=== PATIENT | male | born 1965 | race Caucasian/White ===

== ENCOUNTER 2017-03-06 11:15 | Inpatient (IN) | payer OTHER ==
[2017-03-06 12:44] VITALS: BMI 27.8
--- NOTE | 2017-03-06 13:21 | HP ---
COWS - Scale Resting Pulse: 0= [place] 80 or Below Sweatin=Flushed/Facial Moisture Restless Observation: 1= Difficult to Sit Still Pupil Size: 0= Normal to Room Light Bone or Joint Aches: 2= Severe Diffuse Aches Runny Nose/ Eye Tearin= Runny Nose/Eyes GI Upset > 30mins: 1= Stomach Cramp Tremor Observation: 2= Slight Tremor Visible Yawning Observation: 1= 1-2x During Session Anxiety or Irritability: 2=Irritable/Anxious Goose Flesh Skin: 3=Piloerection COWS Score: 16 CIWA Score - CIWA Score Nausea/Vomitin-No Nausea/No Vomiting Muscle Tremors: 4-Moderate,w/Arms Extend Anxiety: 3 Agitation: 4-Moderately Restless Paroxysmal Sweats: 3 Orientation: 0-Oriented Tacttile Disturbances: 0-None Auditory Disturbances: 0-None Visual Disturbances: 0-None Headache: 1-Very Mild CIWA-Ar Total Score: 15 Admission ROS BHS - HPI Chief Complaint: I am here to detox. Allergies/Adverse Reactions: Allergies Allergy/AdvReac Type Severity Reaction Status Date / Time No Known Allergies Allergy Verified 03/06/17 12:57 History of Present Illness: pt is a 51yr old male with a history of alcohol and heroin dependence seeking detox for treatment. Exam Limitations: No Limitations - Ebola screening Have you traveled outside of the country in the last 21 days: No Have you had contact with anyone from an Ebola affected area: No Have you been sick,other than usual withdrawal symptoms: No Do you have a fever: No - Review of Systems Constitutional: Night Sweats, Changes in sleep EENT: reports: Tearing Respiratory: reports: Cough (smokers) Cardiac: reports: No Symptoms Reported GI: reports: No Symptoms Reported : reports: No Symptoms Reported Musculoskeletal: reports: Joint Pain (neuropathy) Integumentary: reports: Flushing Neuro: reports: Tingling, Tremors Endocrine: reports: Excessive Sweating, Flushing, Intolerance to Cold, Intolerance to Heat Hematology: reports: No Symptoms Reported Psychiatric: reports: No Sypmtoms Reported, Judgement Intact, Mood/Affect Appropiate, Orientated x3, Agitated, Anxious Other Systems: Reviewed and Negative Patient History - Patient Medical History Hx Anemia: No Hx Asthma: No Hx Chronic Obstructive Pulmonary Disease (COPD): No Hx Cancer: No Hx Cardiac Disorders: No Hx Congestive Heart Failure: No Hx Hypertension: No Hx Hypercholesterolemia: No Hx Pacemaker: No HX Cerebrovascular Accident: No Hx Seizures: No Hx Dementia: No Hx Diabetes: No Hx Gastrointestinal Disorders: No Hx Liver Disease: No Hx Genitourinary Disorders: No Hx Sexually Transmitted Disorders: No Hx Renal Disease (ESRD): No Hx Thyroid Disease: No Hx Human Immunodeficiency Virus (HIV): No (negative) Hx Hepatitis C: No (negative) Hx Depression: Yes Hx Suicide Attempt: No Hx Bipolar Disorder: No Hx Schizophrenia: No Other Medical History: insomina - Patient Surgical History Past Surgical History: Yes Hx Neurologic Surgery: No Hx Cataract Extraction: No Hx Cardiac Surgery: No Hx Lung Surgery: No Hx Breast Surgery: No Hx Breast Biopsy: No Hx Abdominal Surgery: No Hx Appendectomy: No Hx Cholecystectomy: No Hx Genitourinary Surgery: No Hx Section: No Hx Orthopedic Surgery: Yes (right knee replacement 2000; left ACL repair 2009) - PPD History Previous Implant?: Yes Documented Results: Negative w/proof Implanted On Prior [facility] Admission?: Yes Date: 07/23/16 Results: 0 mm PPD to be Administered?: No - Reproductive History Patient is a Female of Child Bearing Age (11 -55 yrs old): No - Smoking Cessation Smoking history: Current every day smoker Have you smoked in the past 12 months: Yes Aproximately how many cigarettes per day: 20 Hx Chewing Tobacco Use: No Initiated information on smoking cessation: Yes 'Breaking Loose' booklet given: 03/06/17 - Substance & Tx. History Hx Alcohol Use: Yes Hx Substance Use: Yes Substance Use Type: Alcohol, Heroin Hx Substance Use Treatment: Yes (last detox [facility] 11/2016) - Substances Abused Heroin Route: Inhalation Frequency: Daily Amount used: 15 bags Age of first use: 15 Date of Last Use: 03/05/17 Alcohol-beer Route: Oral Frequency: Daily Amount used: 7 (24 oz.) Age of first use: 15 Date of Last Use: 03/05/17 Family Disease History - Family Disease History Family Disease History: Heart Disease: Mother (htn, liver cancer, alive), CA: Father (pancreatic cancer, alive, heroin use), Mother, Other: Brother (etoh, cocaine) Admission Physical Exam BHS - Vital Signs Vital Signs: Vital Signs - 24 hr 03/06/17 12:41 Temperature 96.4 F L Pulse Rate 79 Respiratory 20 Rate Blood Pressure 141/81 - Physical General Appearance: Yes: Appropriately Dressed, Moderate Distress, Tremorous, Irritable, Sweating, Anxious HEENTM: Yes: Hearing grossly Normal, Normal Voice, Rhinorrhea Respiratory: Yes: Lungs Clear, Normal Breath Sounds, No Respiratory Distress Neck: Yes: No masses,lesions,Nodules Breast: Yes: Within Normal Limits Cardiology: Yes: Regular Rhythm, Regular Rate, S1, S2 Abdominal: Yes: Normal Bowel Sounds, Non Tender, Soft Genitourinary: Yes: Within Normal Limits Back: Yes: Normal Inspection Musculoskeletal: Yes: full range of Motion Extremities: Yes: Normal Capillary Refill, Normal Inspection, Non-Tender, Tremors Neurological: Yes: Fully Oriented, Alert, Normal Response Integumentary: Yes: Normal Color, Diaphoresis Lymphatic: Yes: Within Normal Limits - Diagnostic (1) Alcohol dependence with uncomplicated withdrawal Current Visit: Yes Status: Chronic (2) Low back pain Current Visit: Yes Status: Chronic Qualifiers: Chronicity: chronic Back pain laterality: bilateral Sciatica presence: with sciatica Sciatica laterality: bilateral sciatica Qualified Code(s): M54.42 - Lumbago with sciatica, left side (3) Neuropathy Current Visit: Yes Status: Chronic (4) Nicotine dependence Current Visit: Yes Status: Chronic Qualifiers: Nicotine product type: cigarettes Substance use status: uncomplicated Qualified Code(s): F17.210 - Nicotine dependence, cigarettes, uncomplicated (5) Uncomplicated opioid dependence Current Visit: Yes Status: Chronic Cleared for Admission [facility] - Detox or Rehab [facility] Level of Care: Medically Managed Detox Regimen/Protocol: Methadone/Librium [facility] Breath Alcohol Content Breath Alcohol Content: 0 Urine Drug Screen - Results Drug Screen Negative: No Urine Drug Screen Results: OPI-Opiates, BZO-Benzodiazepines
[2017-03-06] MEDS ORDERED: MENTHOL/PHENOL 1 EACH UD MM PRN (13:27)
[2017-03-06] MEDS ORDERED: MAGNESIUM HYDROX 2400MG/30ML ORAL SUSPENSION 30 ML CUP PO PRN (13:27)
[2017-03-06] MEDS ORDERED: chlordiazePOXIDE HCL 25 MG CAPSULE PO PRN (13:27)
[2017-03-06] MEDS ORDERED: ACETAMINOPHEN 325 MG TABLET (FP) PO PRN (13:27)
[2017-03-06] MEDS ORDERED: NICOTINE POLACRILEX 4 MG GUM BUC PRN (13:27)
[2017-03-06] MEDS ORDERED: MAG HYDROX/AL HYDROX/SIMETH 30 ML UNIT-DOSE CUP PO PRN (13:27)
[2017-03-06] MEDS ORDERED: IBUPROFEN 400 MG TABLET (FP) PO PRN (13:27)
[2017-03-06] MEDS ORDERED: P-EPHED 60MG/TRIPROLIDI 2.5MG TABLET PO PRN (13:27)
[2017-03-06] MEDS ORDERED: guaiFENesin/D-METHORPHAN HB 10 ML UNIT-DOSE CUPS PO PRN (13:27)
[2017-03-06] MEDS ORDERED: diphenhydrAMINE HCL 50 MG CAPSULE PO PRN (13:27)
[2017-03-06] MEDS ORDERED: MAGNESIUM CITRATE 300 ML BOTTLE PO PRN (13:27)
[2017-03-06] MEDS ORDERED: hydrOXYzine PAMOATE 50 MG CAPSULE (FP) PO PRN (13:27)
[2017-03-06] MEDS ORDERED: LOPERAMIDE HCL 2 MG CAPSULE PO PRN (13:27)
[2017-03-06] MEDS ORDERED: chlordiazePOXIDE HCL 25 MG CAPSULE PO ONE (14:37)
[2017-03-06] MEDS ORDERED: METHADONE HCL 10 MG TABLET (FOR DETOX USE ONLY) PO ONE ×2 (14:38→23:00)
[2017-03-06] MEDS: GABAPENTIN 400 MG CAPSULE (FP) PO SCH ×2 (15:04→22:25)
[2017-03-06 16:59] LABS: MCH 31.3 pg (25.7-33.7); MCHC 33.9 g/dl (32.0-35.9); MEAN CELL VOLUME 92.3 fl (80-96); MEAN PLT VOLUME 10.1 fl (7.5-11.1); PLATELET COUNT 91 K/MM3 (134-434); RDW 15.3 % (11.9-15.9); WHITE BLOOD COUNT 2.8 K/mm3 (4.0-10.0)
[2017-03-06 17:05] LABS: URINE APPEARANCE CLEAR; URINE BILIRUBIN NEGATIVE (NEGATIVE); URINE BLOOD NEGATIVE (NEGATIVE); URINE COLOR DKYELLOW; URINE GLUCOSE (UA) NEGATIVE (NEGATIVE); URINE KETONE NEGATIVE (NEGATIVE); URINE LEUK ESTERASE NEGATIVE (NEGATIVE); URINE NITRITE NEGATIVE (NEGATIVE); URINE PROTEIN NEGATIVE (NEGATIVE); URINE UROBILINOGEN 4.0 E.U/dl mg/dL (0.2-1.0)
[2017-03-06 17:12] LABS: ANION GAP 4 (8-16); CO2 29 mmol/L (21-32); GLUCOSE,RANDOM 101 mg/dL (74-106)
[2017-03-06 17:18] LABS: ALK PHOS 123 U/L (45-117); CREATININE 0.7 mg/dL (0.7-1.3); SGOT/AST 98 U/L (15-37); SGPT/ALT 60 U/L (12-78); TOT PROT 7.2 g/dl (6.4-8.2)
[2017-03-06] MEDS: chlordiazePOXIDE HCL 25 MG CAPSULE PO SCH ×2 (17:18→22:24)
--- NOTE | 2017-03-06 17:37 | CONSULT ---
[facility] Psychiatric Consult - Data Date of interview: 03/06/17 Admission source: [facility] Identifying data: One of the multiple admissions to [facility] for this 51 y/o male seeking detox treatment for heroin,benzodiazepine (xanax) and alcohol dependence.Patient is ,a father of one,domiciled,unemployed and supported on food stamps. Substance Abuse History: Discussed with the patient.Mr Moser confirms this report. Smoking Cessation. Smoking history: Current every day smoker. Have you smoked in the past 12 months: Yes. Aproximately how many cigarettes per day : 20. Hx Chewing Tobacco Use: No. Initiated information on smoking cessation: Yes. 'Breaking Loose' booklet given: 03/06/17. - Substance & Tx. History. Hx Alcohol Use: Yes. Hx Substance Use: Yes. Substance Use Type: Alcohol, Heroin. Hx Substance Use Treatment: Yes (last detox [facility] 11/2016). - Substances Abused. Heroin. Route: Inhalation. Frequency: Daily. Amount used: 15 bags. Age of first use: 15. Date of Last Use: 03/05/17. Alcohol-beer. Route: Oral. Frequency: Daily. Amount used: 7 (24 oz.). Age of first use: 15. Date of Last Use: 03/05/17 Medical History: History of right knee replacement,left ACL repair,carpal tunnel syndrome (left wrist) and neuropathy. Psychiatric History: In this interview the patient denies history of psychiatric hospitalizations.This is in contrast with his own report given to this typewriter operator automatic in June 2016.Imported report : " onset of mental illness at age 16.Diagnosed with Bipolar Disorder.Mr Moser states that he has never been compliant with medications " for no more than 20-30 days at a time." He informs that he has been off medications (no recall of any name) for more than seven months.Patient admits to a history of multiple psychiatric hospitalizations.Lost to OPD care for months.No reported history of suicide attempts.Chronic insomnia is endorsed and request made for zolpidem (for the duration of this hospital course) ".Mr Moser,in this new encounter,denies OPD care.Denies taking/being prescribed psychotropic medications.He expresses interest only for " something to sleep." No history of suicide attempts. Physical/Sexual Abuse/Trauma History: Patient denies. Additional Comment: Urine Drug Screen Results: OPI-Opiates, BZO- Benzodiazepines.Noted. Mental Status Exam - Mental Status Exam Alert and Oriented to: Time, Place, Person Cognitive Function: Good Patient Appearance: Well Groomed Mood: Hopeful, Euthymic Affect: Appropriate, Normal Range Patient Behavior: Appropriate, Cooperative Speech Pattern: Clear Voice Loudness: Normal Thought Process: Goal Oriented Thought Disorder: Not Present Hallucinations: Denies Suicidal Ideation: Denies Homicidal Ideation: Denies Insight/Judgement: Poor Sleep: Poorly, Difficulty falling asleep Appetite: Good Muscle strength/Tone: Normal Gait/Station: Normal Psychiatric Findings - Problem List ([place] 1, 2,3) (1) Alcohol dependence with uncomplicated withdrawal Current Visit: Yes Status: Acute (2) Uncomplicated opioid dependence Current Visit: Yes Status: Acute (3) Nicotine dependence Current Visit: Yes Status: Acute Qualifiers: Nicotine product type: cigarettes Substance use status: uncomplicated Qualified Code(s): F17.210 - Nicotine dependence, cigarettes, uncomplicated (4) Substance induced mood disorder Current Visit: Yes Status: Acute (5) Carpal tunnel syndrome, left Current Visit: Yes Status: Chronic (6) Insomnia Current Visit: Yes Status: Acute - Initial Treatment Plan Initial Treatment Plan: Psychoeducation.Detoxification.Ambien 10 mg po hs prn.Patient is made aware of potential for parasomnias.He is in agreement with this careplan.Observation.
--- NOTE | 2017-03-06 17:39 | CONSULT ---
[facility] Psychiatric Consult - Data Date of interview: 03/06/17 Psychiatric History: Patient reports onset of mental illness at age 16.Diagnosed with Bipolar Disorder.Mr Shanti states that he has never been compliant with medications " for no more than 20-30 days at a time." He informs that he has been off medications (no recall of any name) for more than seven months.Patient admits to a history of multiple psychiatric hospitalizations.Lost to OPD care for months.No reported history of suicide attempts.Chronic insomnia is endorsed and request made for zolpidem (for the duration of this hospital course).
[2017-03-06] MEDS: THIAMINE HCL 100 MG TABLET (FP) PO SCH (22:25)
[2017-03-06] MEDS: ZOLPIDEM TARTRATE 10 MG TABLET (PARK CARE ONLY) PO PRN (22:25)
[2017-03-07] MEDS: GABAPENTIN 400 MG CAPSULE (FP) PO SCH ×3 (06:00→23:00)
[2017-03-07] MEDS: chlordiazePOXIDE HCL 25 MG CAPSULE PO SCH ×4 (06:00→23:00)
[2017-03-07] MEDS ORDERED: METHADONE HCL 10 MG TABLET (FOR DETOX USE ONLY) PO SCH (10:00)
[2017-03-07] MEDS ORDERED: PRENATAL VITAMINS W/ FOLIC ACID TABLET (FP) PO SCH (10:00)
[2017-03-07] MEDS ORDERED: NICOTINE 21 MG/24 HOURS TOPICAL PATCH TD SCH (10:00)
--- NOTE | 2017-03-07 10:48 | PN ---
[facility] CIWA - CIWA Score Nausea/Vomitin-Mild Nausea/No Vomiting Muscle Tremors: 3 Anxiety: 3 Agitation: 3 Paroxysmal Sweats: 3 Orientation: 1-Uncertain about Date Tacttile Disturbances: 1-Very Mild Itch/Numbness Auditory Disturbances: 0-None Visual Disturbances: 0-None Headache: 0-None Present CIWA-Ar Total Score: 15 BHS COWS - Scale Resting Pulse: 0= [place] 80 or Below Sweatin=Flushed/Facial Moisture Restless Observation: 1= Difficult to Sit Still Pupil Size: 0= Normal to Room Light Bone or Joint Aches: 2= Severe Diffuse Aches Runny Nose/ Eye Tearin= Nasal Congestion GI Upset > 30mins: 1= Stomach Cramp Tremor Observation of Outstretched Hands: 2= Slight Tremor Visible Yawning Observation: 1= 1-2x During Session Anxiety or Irritability: 2=Irritable/Anxious Goose Flesh Skin: 0=Smooth Skin COWS Score: 12 S Progress Note (SOAP) Subjective: Anxiety,tremors,sweating,interrupted sleep,muscle aches. Objective: 03/07/17 10:46 Vital Signs - 8 hr 03/07/17 03/07/17 03/07/17 04:17 06:40 09:40 Temperature 96.7 F L 97.1 F L Pulse Rate 65 72 Respiratory 18 18 18 Rate Blood Pressure 135/81 138/81 Laboratory Tests 03/06/17 03/06/17 03/06/17 14:00 14:00 15:00 WBC 2.8 L D RBC 4.53 Hgb 14.2 Hct 41.8 MCV 92.3 MCH 31.3 MCHC 33.9 RDW 15.3 Plt Count 91 L MPV 10.1 Sodium 140 Potassium 4.1 Chloride 107 Carbon Dioxide 29 Anion Gap 4 L BUN 10 D Creatinine 0.7 Creat Clearance w eGFR > 60 Random Glucose 101 Calcium 9.0 Total Bilirubin 2.0 H D AST 98 H D ALT 60 D Alkaline Phosphatase 123 H D Total Protein 7.2 Albumin 3.0 L Urine Color Dkyellow Urine Appearance Clear Urine pH 6.0 Ur Specific [place] 1.020 Urine Protein Negative Urine Glucose (UA) Negative Urine Ketones Negative Urine Blood Negative Urine Nitrite Negative Urine Bilirubin Negative Urine Urobilinogen 4.0 e.u/dl Ur Leukocyte Esterase Negative labs noted Assessment: 03/07/17 10:47 Withdrawal sx. Plan: Continue detox
--- NOTE | 2017-03-07 15:38 | EKG ---
Test Reason : Blood Pressure : / mmHG Vent. Rate : 068 BPM Atrial Rate : 068 BPM P-R Int : 144 ms QRS Dur : 090 ms QT Int : 448 ms P-R-T Axes : 058 050 033 degrees QTc Int : 476 ms NORMAL SINUS RHYTHM MINIMAL VOLTAGE CRITERIA FOR LVH, MAY BE NORMAL VARIANT BORDERLINE ECG NO PREVIOUS ECGS AVAILABLE Confirmed by NBA WALTER MD ([id number]) on 03/07/2017 3:38:38 PM Referred By: Confirmed By:NBA WALTER MD
[2017-03-07] MEDS: THIAMINE HCL 100 MG TABLET (FP) PO SCH (23:00)
[2017-03-07] MEDS: ZOLPIDEM TARTRATE 10 MG TABLET (PARK CARE ONLY) PO PRN (23:00)
[2017-03-08] MEDS: chlordiazePOXIDE HCL 25 MG CAPSULE PO SCH (05:22)
[2017-03-08] MEDS: GABAPENTIN 400 MG CAPSULE (FP) PO SCH (05:22)
[2017-03-08] MEDS ORDERED: METHADONE HCL 5 MG TABLET (FOR DETOX USE ONLY) PO SCH (10:00)
[2017-03-08 10:42] VITALS: BP 133/80; PULSE 57; TEMP 97.6
--- NOTE | 2017-03-08 11:34 | DS ---
[facility] Detox Discharge Summary Admission Date: 03/06/17 Discharge Date: 03/08/17 - History Present History: Alcohol Dependence, Opioid Dependence Additional Comments: PATIENT DID NOT WISH TO STAY TO COMPLETE DETOX REGIMEN. PATIENT ADVISED TO GO IMMEDIATELY TO NEAREST ER SHOULD ANY INTOLERABLE DETOX SYMPTOMS DEVELOP AT ANY TIME. PATIENT LEFT UNIT IN STABLE MEDICAL CONDITION. Pertinent Past History: Insomnia, Depression, Neuropathy, Carpal Tunnel Syndrome, Low Back Pain. - Physical Exam Results Vital Signs: Vital Signs Temperature 97.6 F 03/08/17 10:41 Pulse Rate 57 L 03/08/17 10:41 Respiratory Rate 18 03/08/17 10:41 Blood Pressure 133/80 03/08/17 10:41 O2 Sat by Pulse Oximetry (%) Pertinent Admission Physical Exam Findings: WITHDRAWAL SYMPTOMS. Laboratory Tests 03/06/17 03/06/17 03/06/17 14:00 14:00 14:00 WBC 2.8 L D RBC 4.53 Hgb 14.2 Hct 41.8 MCV 92.3 MCH 31.3 MCHC 33.9 RDW 15.3 Plt Count 91 L MPV 10.1 Sodium 140 Potassium 4.1 Chloride 107 Carbon Dioxide 29 Anion Gap 4 L BUN 10 D Creatinine 0.7 Creat Clearance w eGFR > 60 Random Glucose 101 Calcium 9.0 Total Bilirubin 2.0 H D AST 98 H D ALT 60 D Alkaline Phosphatase 123 H D Total Protein 7.2 Albumin 3.0 L Urine Color Urine Appearance Urine pH Ur Specific [place] Urine Protein Urine Glucose (UA) Urine Ketones Urine Blood Urine Nitrite Urine Bilirubin Urine Urobilinogen Ur Leukocyte Esterase RPR Titer Nonreactive 03/06/17 15:00 WBC RBC Hgb Hct MCV MCH MCHC RDW Plt Count MPV Sodium Potassium Chloride Carbon Dioxide Anion Gap BUN Creatinine Creat Clearance w eGFR Random Glucose Calcium Total Bilirubin AST ALT Alkaline Phosphatase Total Protein Albumin Urine Color Dkyellow Urine Appearance Clear Urine pH 6.0 Ur Specific [place] 1.020 Urine Protein Negative Urine Glucose (UA) Negative Urine Ketones Negative Urine Blood Negative Urine Nitrite Negative Urine Bilirubin Negative Urine Urobilinogen 4.0 e.u/dl Ur Leukocyte Esterase Negative RPR Titer LABS NOTED. - Treatment Hospital Course: Detoxed Safely - Medication Discharge Medications: Ambulatory Orders Gabapentin [Neurontin -] 800 mg PO Q8H 07/21/16 - Diagnosis (1) Alcohol dependence with uncomplicated withdrawal Status: Acute (2) Insomnia Status: Acute (3) Nicotine dependence Status: Acute Qualifiers: Nicotine product type: cigarettes Substance use status: uncomplicated Qualified Code(s): F17.210 - Nicotine dependence, cigarettes, uncomplicated (4) Substance induced mood disorder Status: Acute (5) Uncomplicated opioid dependence Status: Acute (6) Carpal tunnel syndrome, left Status: Chronic (7) Low back pain Status: Chronic Qualifiers: Chronicity: chronic Back pain laterality: bilateral Sciatica presence: with sciatica Sciatica laterality: bilateral sciatica Qualified Code(s): M54.42 - Lumbago with sciatica, left side (8) Neuropathy Status: Chronic - AMA Did Patient Leave Against Medical Advice: Yes (PATIENT DID NOT WSISH TO STAY TO COMPLETE DETOX REGIMEN.)
[2017-03-08] MEDS ORDERED: chlordiazePOXIDE 5 MG CAPSULE PO SCH (17:00)
[2017-03-09] MEDS ORDERED: chlordiazePOXIDE HCL 10 MG CAPSULE PO SCH (17:00)
[2017-03-10] MEDS ORDERED: METHADONE HCL 10 MG TABLET (FOR DETOX USE ONLY) PO SCH (10:00)
[2017-03-11] MEDS ORDERED: METHADONE HCL 5 MG TABLET (FOR DETOX USE ONLY) PO SCH (06:00)
== END 2017-03-08 10:10 | disposition left against medical advice (07) | DRG 894 ==
LOC: YASAS 11:15 → Y3N 14:06
PROVIDERS: ADMIT Internal Medicine; ATTEND Internal Medicine
PROC: HZ2ZZZZ Detoxification Services for Substance Abuse Treatment (ICD-10-PCS; principal; 2017-03-06)
DX: F19.230 Other psychoactive substance dependence with withdrawal, uncomplicated (principal); F11.23 Opioid dependence with withdrawal; F10.230 Alcohol dependence with withdrawal, uncomplicated; F17.210 Nicotine dependence, cigarettes, uncomplicated; F19.24 Other psychoactive substance dependence with psychoactive substance-induced mood disorder; G47.00 Insomnia, unspecified; G62.9 Polyneuropathy, unspecified; G56.02 Carpal tunnel syndrome, left upper limb; M54.42 Lumbago with sciatica, left side; M54.41 Lumbago with sciatica, right side; Z96.651 Presence of right artificial knee joint
CPT/HCPCS: 36415; 80053; 81003; 85027; 86593; 93005; 93010

== ENCOUNTER 2019-01-02 11:15 | Inpatient (IN) | payer OTHER ==
[2019-01-02 13:58] VITALS: BMI 35.1
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
[2019-01-02] MEDS ORDERED: MAGNESIUM HYDROX 2400MG/30ML ORAL SUSPENSION 30 ML CUP PO PRN (16:37)
[2019-01-02] MEDS ORDERED: MAGNESIUM CITRATE 300 ML BOTTLE PO PRN (16:37)
[2019-01-02] MEDS ORDERED: BISMUTH SUBSALICYLATE 524 MG/30 ML UD PO PRN (16:37)
[2019-01-02] MEDS ORDERED: IBUPROFEN 400 MG TABLET (FP) PO PRN (16:37)
[2019-01-02] MEDS ORDERED: MENTHOL/PHENOL 1 EACH UD MM PRN (16:37)
[2019-01-02] MEDS ORDERED: NICOTINE POLACRILEX 2 MG GUM BUC PRN (16:37)
[2019-01-02] MEDS ORDERED: ACETAMINOPHEN 325 MG TABLET (FP) PO PRN ×2 (16:37)
[2019-01-02] MEDS ORDERED: METHOCARBAMOL 500 MG TABLET PO PRN (16:37)
[2019-01-02] MEDS ORDERED: chlordiazePOXIDE HCL 10 MG CAPSULE PO PRN (16:43)
[2019-01-02] MEDS: hydrOXYzine PAMOATE 25 MG CAPSULE (FP) PO PRN (18:14)
[2019-01-02] MEDS: chlordiazePOXIDE HCL 25 MG CAPSULE PO SCH (22:05)
[2019-01-02] MEDS: MELATONIN 5 MG TABLETS PO PRN (22:05)
[2019-01-02] MEDS: THIAMINE HCL 100 MG TABLET (FP) PO SCH (22:06)
[2019-01-02] MEDS ORDERED: METHADONE HCL 10 MG TABLET (FOR DETOX USE ONLY) PO ONE (23:00)
[2019-01-03] MEDS: chlordiazePOXIDE HCL 25 MG CAPSULE PO SCH ×2 (06:01→13:44)
[2019-01-03] MEDS ORDERED: METHADONE HCL 10 MG TABLET (FOR DETOX USE ONLY) PO ONE (10:00)
[2019-01-03] MEDS: PRENATAL VITAMINS W/ FOLIC ACID TABLET (FP) PO SCH (10:20)
[2019-01-03] MEDS: NICOTINE 7 MG/24 HOURS TOPICAL PATCH TD SCH (10:20)
--- NOTE | 2019-01-03 11:56 | PN ---
[facility] CIWA - CIWA Score Nausea/Vomitin-No Nausea/No Vomiting Muscle Tremors: 2 Anxiety: 2 Agitation: 3 Paroxysmal Sweats: 3 Orientation: 0-Oriented Tacttile Disturbances: 0-None Auditory Disturbances: 0-None Visual Disturbances: 0-None Headache: 0-None Present CIWA-Ar Total Score: 10 S COWS - Scale Resting Pulse: 0= [place] 80 or Below Sweatin=Flushed/Facial Moisture Restless Observation: 1= Difficult to Sit Still Pupil Size: 0= Normal to Room Light Bone or Joint Aches: 2= Severe Diffuse Aches Runny Nose/ Eye Tearin= Nasal Congestion GI Upset > 30mins: 0= None Tremor Observation of Outstretched Hands: 2= Slight Tremor Visible Yawning Observation: 1= 1-2x During Session Anxiety or Irritability: 2=Irritable/Anxious Goose Flesh Skin: 0=Smooth Skin COWS Score: 11 [facility] Progress Note (SOAP) Subjective: sweats shakes interrupted sleep body aches agitation restless Objective: 01/03/19 11:56 Vital Signs Temperature 98.2 F 01/03/19 09:28 Pulse Rate 70 01/03/19 09:28 Respiratory Rate 14 01/03/19 09:28 Blood Pressure 134/69 01/03/19 09:28 O2 Sat by Pulse Oximetry (%) labs pending aaox3 ambulating no acute distress Assessment: 01/03/19 11:56 withdrawal sx Plan: continue detox increase fluids pending labs
[2019-01-03 12:42] LABS: HEMATOCRIT 33.3 % (35.4-49); HEMOGLOBIN 11.4 GM/dL (11.7-16.9); MCH 29.1 pg (25.7-33.7); MCHC 34.2 g/dl (32.0-35.9); MEAN CELL VOLUME 85.1 fl (80-96); MEAN PLT VOLUME 9.1 fl (7.5-11.1); RBC 3.92 M/mm3 (4.00-5.60); RDW 14.8 % (11.9-15.9)
[2019-01-03 12:44] LABS: ALBUMIN 2.9 g/dl (3.4-5.0); BILIRUBIN,TOTAL 0.7 mg/dL (0.2-1); BLOOD UREA NITROGEN 8.4 mg/dL (7-18); CALCIUM 8.3 mg/dL (8.5-10.1); CREATININE 0.7 mg/dL (0.55-1.3); POTASSIUM 3.8 mmol/L (3.5-5.1); TOT PROT 5.9 g/dl (6.4-8.2)
[2019-01-03] MEDS: MAG HYDROX/AL HYDROX/SIMETH 30 ML UNIT-DOSE CUP PO PRN (16:35)
--- NOTE | 2019-01-03 16:58 | EKG ---
Test Reason : Blood Pressure : / mmHG Vent. Rate : 066 BPM Atrial Rate : 066 BPM P-R Int : 166 ms QRS Dur : 092 ms QT Int : 450 ms P-R-T Axes : 002 046 025 degrees QTc Int : 471 ms NORMAL SINUS RHYTHM NORMAL ECG WHEN COMPARED WITH ECG OF 06-MAR-2017 14:15, NO SIGNIFICANT CHANGE WAS FOUND Confirmed by ANAID CABRALES MD ([id number]) on 01/03/2019 4:57:26 PM Referred By: JANNET MAHAJAN Confirmed By:ANAID CABRALES MD
[2019-01-03 19:51] LABS: PLATELET COUNT 107 K/MM3 (134-434)
[2019-01-03] MEDS: chlordiazePOXIDE 5 MG CAPSULE PO SCH (22:51)
[2019-01-03] MEDS: MELATONIN 5 MG TABLETS PO PRN (22:51)
[2019-01-03] MEDS: THIAMINE HCL 100 MG TABLET (FP) PO SCH (23:01)
[2019-01-04] MEDS: chlordiazePOXIDE 5 MG CAPSULE PO SCH ×2 (05:36→14:47)
[2019-01-04] MEDS ORDERED: METHADONE HCL 10 MG TABLET (FOR DETOX USE ONLY) PO ONE (10:00)
[2019-01-04] MEDS: PRENATAL VITAMINS W/ FOLIC ACID TABLET (FP) PO SCH (10:20)
[2019-01-04] MEDS: NICOTINE 7 MG/24 HOURS TOPICAL PATCH TD SCH (10:21)
--- NOTE | 2019-01-04 12:43 | PN ---
[facility] CIWA - CIWA Score Nausea/Vomitin-Mild Nausea/No Vomiting Muscle Tremors: 2 Anxiety: 2 Agitation: 2 Paroxysmal Sweats: 2 Orientation: 0-Oriented Tacttile Disturbances: 0-None Auditory Disturbances: 0-None Visual Disturbances: 0-None Headache: 0-None Present CIWA-Ar Total Score: 9 [facility] COWS - Scale Resting Pulse: 0= [place] 80 or Below Sweatin= Chills/Flushing Restless Observation: 3= Extraneous Movement Pupil Size: 0= Normal to Room Light Bone or Joint Aches: 1= Mild Discomfort Runny Nose/ Eye Tearin= None GI Upset > 30mins: 1= Stomach Cramp Tremor Observation of Outstretched Hands: 2= Slight Tremor Visible Yawning Observation: 0= None Anxiety or Irritability: 1=Feels Anxious/Irritable Goose Flesh Skin: 0=Smooth Skin COWS Score: 9 [facility] Progress Note (SOAP) Subjective: Tremor, sweating, diarrhea, interrupted sleep Objective: 01/04/19 12:38 Last Vital Signs Temp Pulse Resp BP Pulse Ox 97.7 F 68 16 137/84 01/04/19 09:13 01/04/19 09:13 01/04/19 09:13 01/04/19 09:13 Elevated b/p noted: denies htn, could be r/t withdrawal, will add clonidine prn Laboratory Tests 01/03/19 01/03/19 01/03/19 10:10 10:20 10:20 WBC 4.0 RBC 3.92 L Hgb 11.4 L Hct 33.3 L D MCV 85.1 MCH 29.1 MCHC 34.2 RDW 14.8 Plt Count 107 L MPV 9.1 Sodium 140 Potassium 3.8 Chloride 106 Carbon Dioxide 30 Anion Gap 4 L BUN 8.4 Creatinine 0.7 Est GFR (CKD-EPI)AfAm 123.13 Est GFR (CKD-EPI)NonAf 106.24 Random Glucose 195 H Calcium 8.3 L Total Bilirubin 0.7 AST 22 ALT 20 Alkaline Phosphatase 87 Total Protein 5.9 L Albumin 2.9 L RPR Titer Nonreactive Labs reviewed: pancytopenia noted which is most likely r/t alcoholism; serum calcium 8.3 Assessment: 01/04/19 12:42 Withdrawal symptoms Noted with elevated blood pressure, pancytopenia and hypocalcemia Plan: Continue detox Encouraged PO water intake Elevated blood pressure: clonidine 0.1mg PO q8hr prn if b/p > 140/90 Pancytopenia: most likely r/t alcoholism, encouraged abstinence and drug rehab Follow up with PCP for monitoring Hypocalcemia, mild: start calcium carbonate 650mg PO bid for couple of days
[2019-01-04] MEDS ORDERED: cloNIDine HCL 0.1 MG TABLET PO PRN (12:47)
[2019-01-04] MEDS ORDERED: chlordiazePOXIDE HCL 10 MG CAPSULE PO PRN (21:00)
[2019-01-04] MEDS: chlordiazePOXIDE HCL 10 MG CAPSULE PO SCH (22:21)
[2019-01-04] MEDS: CALCIUM CARBONATE 650 MG TABLET PO SCH (22:21)
[2019-01-04] MEDS: THIAMINE HCL 100 MG TABLET (FP) PO SCH (22:21)
[2019-01-04] MEDS: hydrOXYzine PAMOATE 25 MG CAPSULE (FP) PO PRN (22:22)
[2019-01-05] MEDS: chlordiazePOXIDE HCL 10 MG CAPSULE PO SCH ×3 (06:22→22:03)
[2019-01-05] MEDS ORDERED: METHADONE HCL 10 MG TABLET (FOR DETOX USE ONLY) PO ONE (10:00)
[2019-01-05] MEDS: CALCIUM CARBONATE 650 MG TABLET PO SCH ×2 (10:14→22:05)
[2019-01-05] MEDS: PRENATAL VITAMINS W/ FOLIC ACID TABLET (FP) PO SCH (10:14)
[2019-01-05] MEDS: NICOTINE 7 MG/24 HOURS TOPICAL PATCH TD SCH (10:14)
--- NOTE | 2019-01-05 13:58 | PN ---
[facility] CIWA - CIWA Score Nausea/Vomitin-No Nausea/No Vomiting Muscle Tremors: 3 Anxiety: 2 Agitation: 0-Normal Activity Paroxysmal Sweats: 3 Orientation: 0-Oriented Tacttile Disturbances: 0-None Auditory Disturbances: 0-None Visual Disturbances: 2-Mild Sensitivity Headache: 0-None Present CIWA-Ar Total Score: 10 [facility] COWS - Scale Resting Pulse: 0= [place] 80 or Below Sweatin= Chills/Flushing Restless Observation: 0= Sits Still Pupil Size: 0= Normal to Room Light Bone or Joint Aches: 2= Severe Diffuse Aches Runny Nose/ Eye Tearin= None GI Upset > 30mins: 2= Nausea/Diarrhea Tremor Observation of Outstretched Hands: 2= Slight Tremor Visible Yawning Observation: 1= 1-2x During Session Anxiety or Irritability: 2=Irritable/Anxious Goose Flesh Skin: 0=Smooth Skin COWS Score: 10 S Progress Note (SOAP) Subjective: Diarrhea, Interrupted Sleep, Body Aches, Chills, Tremors, Sweating. Objective: PATIENT A & O X 3, OBSERVED AMBULATING ON UNIT UNASSISTED. IN NO ACUTE DISTRESS. 01/05/19 13:56 Vital Signs Temperature 97.7 F 01/05/19 12:51 Pulse Rate 63 01/05/19 12:51 Respiratory Rate 18 01/05/19 12:51 Blood Pressure 149/75 01/05/19 12:51 O2 Sat by Pulse Oximetry (%) Laboratory Tests 01/03/19 01/03/19 01/03/19 10:10 10:20 10:20 WBC 4.0 RBC 3.92 L Hgb 11.4 L Hct 33.3 L D MCV 85.1 MCH 29.1 MCHC 34.2 RDW 14.8 Plt Count 107 L MPV 9.1 Sodium 140 Potassium 3.8 Chloride 106 Carbon Dioxide 30 Anion Gap 4 L BUN 8.4 Creatinine 0.7 Est GFR (CKD-EPI)AfAm 123.13 Est GFR (CKD-EPI)NonAf 106.24 Random Glucose 195 H Calcium 8.3 L Total Bilirubin 0.7 AST 22 ALT 20 Alkaline Phosphatase 87 Total Protein 5.9 L Albumin 2.9 L RPR Titer Nonreactive LABS NOTED. PATIENT HAS HAD LOW PLATELET LEVELS ON PREVIOUS ADMISSIONS. 01/05/19 13:58 Assessment: 01/05/19 13:54 WITHDRAWAL SYMPTOMS. ANEMIA. THROMBOCYTOPENIA. HYPERGLYCEMIA. 01/05/19 13:58 Plan: CONTINUE DETOX. INCREASE DAILY PO FLUID / WATER INTAKE. PATIENT IS CURRENTLY RECEIVING DAILY MVI CONTAINING B VITAMINS AND IRON WHILE ADMITTED FOR DETOX. PATIENT SCHEDULED FOR D/C TOMORROW.
[2019-01-05] MEDS: MAG HYDROX/AL HYDROX/SIMETH 30 ML UNIT-DOSE CUP PO PRN (17:51)
[2019-01-05] MEDS: THIAMINE HCL 100 MG TABLET (FP) PO SCH (22:05)
[2019-01-06] MEDS ORDERED: METHADONE HCL 5 MG TABLET (FOR DETOX USE ONLY) PO ONE (06:00)
[2019-01-06 06:14] VITALS: TEMP 97.5
--- NOTE | 2019-01-06 09:30 | DS ---
[facility] Detox Discharge Summary Admission Date: 01/02/19 Discharge Date: 01/06/19 - History Present History: Alcohol Dependence, Opioid Dependence, Sedative Dependence - Physical Exam Results Vital Signs: Vital Signs Temperature 97.5 F L 01/06/19 06:00 Pulse Rate 59 L 01/06/19 06:00 Respiratory Rate 18 01/06/19 06:00 Blood Pressure 120/84 01/06/19 06:00 O2 Sat by Pulse Oximetry (%) - Treatment Hospital Course: Detox Protocol Followed, Detoxed Safely, Responded well, Discharged Condition Good, Rehab Referral Accepted - Medication Discharge Medications: Ambulatory Orders Gabapentin [Neurontin] 600 mg PO TID 01/02/19 - Diagnosis (1) Alcohol dependence with uncomplicated withdrawal Current Visit: Yes Status: Chronic (2) Nicotine dependence Current Visit: Yes Status: Chronic Qualifiers: Nicotine product type: cigarettes Substance use status: uncomplicated Qualified Code(s): F17.210 - Nicotine dependence, cigarettes, uncomplicated (3) Insomnia Current Visit: No Status: Acute (4) Substance induced mood disorder Current Visit: No Status: Acute (5) Uncomplicated opioid dependence Current Visit: Yes Status: Chronic (6) Benzodiazepine abuse Current Visit: No Status: Chronic (7) Carpal tunnel syndrome, left Current Visit: No Status: Chronic (8) Low back pain Current Visit: Yes Status: Chronic Qualifiers: Chronicity: chronic Back pain laterality: bilateral Sciatica presence: with sciatica Sciatica laterality: bilateral sciatica Qualified Code(s): M54.42 - Lumbago with sciatica, left side (9) Neuropathy Current Visit: No Status: Chronic - AMA Did Patient Leave Against Medical Advice: No (referred to [facility])
[2019-01-06 09:48] VITALS: BP 130/70; PULSE 70
== END 2019-01-06 09:25 | disposition home or self-care (01) | DRG 897 ==
LOC: YASAS 11:15 → Y6N 17:21
PROVIDERS: ADMIT Surgery; ATTEND Surgery
PROC: HZ2ZZZZ Detoxification Services for Substance Abuse Treatment (ICD-10-PCS; principal; 2019-01-02)
DX: F10.230 Alcohol dependence with withdrawal, uncomplicated (principal); F11.20 Opioid dependence, uncomplicated; F13.10 Sedative, hypnotic or anxiolytic abuse, uncomplicated; F17.210 Nicotine dependence, cigarettes, uncomplicated; F19.24 Other psychoactive substance dependence with psychoactive substance-induced mood disorder; G62.9 Polyneuropathy, unspecified; M54.42 Lumbago with sciatica, left side; G56.02 Carpal tunnel syndrome, left upper limb; D64.9 Anemia, unspecified; D69.6 Thrombocytopenia, unspecified; E83.51 Hypocalcemia; R73.9 Hyperglycemia, unspecified; R03.0 Elevated blood-pressure reading, without diagnosis of hypertension; Z96.651 Presence of right artificial knee joint
CPT/HCPCS: 36415; 80053; 85027; 86593; 93005; 93010

== ENCOUNTER 2019-03-08 09:31 | Inpatient (IN) | payer OTHER ==
[2019-03-08 12:54] VITALS: BMI 33.0
--- NOTE | 2019-03-08 14:46 | HP ---
COWS - Scale Resting Pulse: 0= [place] 80 or Below Sweatin= Chills/Flushing Restless Observation: 1= Difficult to Sit Still Pupil Size: 1= Pupils >than Normal Bone or Joint Aches: 2= Severe Diffuse Aches Runny Nose/ Eye Tearin= Runny Nose/Eyes GI Upset > 30mins: 2= Nausea/Diarrhea Tremor Observation: 2= Slight Tremor Visible Yawning Observation: 2= >3x During Session Anxiety or Irritability: 2=Irritable/Anxious Goose Flesh Skin: 0=Smooth Skin COWS Score: 15 CIWA Score Nausea/Vomitin Muscle Tremors: 2 Anxiety: 3 Agitation: 2 Paroxysmal Sweats: 1-Minimal Palms Moist Orientation: 0-Oriented Tacttile Disturbances: 1-Very Mild Itch/Numbness Auditory Disturbances: 0-None Visual Disturbances: 0-None Headache: 2-Mild CIWA-Ar Total Score: 13 - Admission Criteria OASAS Guidelines: Admission for Medically Managed Detox: Requires at least one of the followin. CIWA greater than 12 2. Seizures within the past 24 hours 3. Delirium tremens within the past 24 hours 4. Hallucinations within the past 24 hours 5. Acute intervention needed for co occurring medical disorder 6. Acute intervention needed for co occurring psychiatric disorder 7. Severe withdrawal that cannot be handled at a lower level of care (continued vomiting, continued diarrhea, abnormal vital signs) requiring intravenous medication and/or fluids 8. Admission ROS S - [facility] Chief Complaint: i need help to stop using heroin and alcohol Allergies/Adverse Reactions: Allergies Allergy/AdvReac Type Severity Reaction Status Date / Time No Known Allergies Allergy Verified 03/08/19 12:46 History of Present Illness: this 53 years old male with heroin and alcohol dependence,seeking detox, withdrawal symptom syncope denied seizure nicotine dependence 1 pack/day,requesting nicotine patch and gum multiple admissions in detox but keep relapsing longest period of sobriety 5 years form 1999 to 2004 partial knee replacement 18 years ago in 2000 neuropathy ambulation with cane for 3 days plan for rehab after detox history of anxiety,depression,insomnia low back pain Exam Limitations: No Limitations - Ebola screening Have you traveled outside of the country in the last 21 days: No (N) Have you had contact with anyone from an Ebola affected area: No Do you have a fever: No - Review of Systems Constitutional: Chills, Loss of Appetite, Malaise, Night Sweats, Changes in sleep EENT: reports: Tearing, Nose Congestion Respiratory: reports: No Symptoms reported Cardiac: reports: No Symptoms Reported GI: reports: Diarrhea, Nausea, Poor Appetite : reports: No Symptoms Reported Musculoskeletal: reports: Back Pain, Joint Pain, Muscle Pain, Joint Stiffness Integumentary: reports: Dryness Neuro: reports: Headache, Tremors Endocrine: reports: No Symptoms Reported Hematology: reports: No Symptoms Reported Psychiatric: reports: No Sypmtoms Reported, Judgement Intact, Mood/Affect Appropiate, Orientated x3, Anxious, Depressed (insomnia) Other Systems: Reviewed and Negative Patient History - Patient Medical History Hx Anemia: No Hx Asthma: No Hx Chronic Obstructive Pulmonary Disease (COPD): No Hx Cancer: No Hx Cardiac Disorders: No Hx Congestive Heart Failure: No Hx Hypertension: No Hx Hypercholesterolemia: No Hx Pacemaker: No HX Cerebrovascular Accident: No Hx Seizures: No Hx Dementia: No Hx Diabetes: No Hx Gastrointestinal Disorders: No Hx Liver Disease: No Hx Genitourinary Disorders: No Hx Sexually Transmitted Disorders: No Hx Renal Disease (ESRD): No Hx Thyroid Disease: No Hx Human Immunodeficiency Virus (HIV): No (negative last 2016 ) Hx Hepatitis C: No (negative) Hx Depression: Yes (anxiety,insomnia) Hx Suicide Attempt: No Hx Bipolar Disorder: No Hx Schizophrenia: No Other Medical History: no suicidal,no homicidal - Patient Surgical History Past Surgical History: Yes Hx Neurologic Surgery: No Hx Cataract Extraction: No Hx Cardiac Surgery: No Hx Lung Surgery: No Hx Breast Surgery: No Hx Breast Biopsy: No Hx Abdominal Surgery: No Hx Appendectomy: No Hx Cholecystectomy: No Hx Genitourinary Surgery: No Hx Section: No Hx Orthopedic Surgery: Yes (right knee replacement 2000; left ACL repair 2009) - PPD History Previous Implant?: Yes Documented Results: Negative w/proof Implanted On Prior R Admission?: Yes Date: 01/04/19 Results: 0 mm PPD to be Administered?: No - Smoking Cessation Smoking history: Current every day smoker Have you smoked in the past 12 months: Yes Aproximately how many cigarettes per day: 20 Hx Chewing Tobacco Use: No Initiated information on smoking cessation: Yes 'Breaking Loose' booklet given: 03/08/19 - Substance & Tx. History Hx Alcohol Use: Yes Hx Substance Use: Yes Substance Use Type: Alcohol, Heroin Hx Substance Use Treatment: Yes ([facility] 01/02/19 to 01/06/19) - Substances abused Heroin Substance route: Inhalation Frequency: Daily Amount used: 10-15 bags Age of first use: 15 Date of last use: 03/07/19 Alcohol Substance route: Oral Frequency: Daily Amount used: 18 onces of beer-10-12 bottles Age of first use: 15 Date of last use: 03/07/19 Family Disease History - Family Disease History Family Disease History: Heart Disease: Mother (htn, breast cancer, alive), CA: Father (pancreatic cancer, alive, heroin use), Mother, Other: Brother (etoh, cocaine) Admission Physical Exam [facility] - Vital Signs Vital Signs: Vital Signs - 24 hr 03/08/19 12:50 Temperature 98.1 F Pulse Rate 68 Respiratory 16 Rate Blood Pressure 151/80 - Physical General Appearance: Yes: Moderate Distress, Tremorous, Irritable, Sweating, Anxious HEENTM: Yes: Normal ENT Inspection, CHE, Pharynx Normal Respiratory: Yes: Lungs Clear, Normal Breath Sounds, No Respiratory Distress Neck: Yes: Within Normal Limits, Supple, Trachea in good position Breast: Yes: Within Normal Limits Cardiology: Yes: Within Normal Limits, Regular Rhythm, Regular Rate Abdominal: Yes: Within Normal Limits, Normal Bowel Sounds, Non Tender, Flat, Soft Genitourinary: Yes: Within Normal Limits Back: Yes: Muscle Spasm Musculoskeletal: Yes: Back pain, Joint Stiffness, Muscle Pain Extremities: Yes: Tremors, Other (scar of of right knee) Neurological: Yes: 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 NML intact, Alert, Motor Strength 5/5 Integumentary: Yes: Dry Lymphatic: Yes: Within Normal Limits - Diagnostic (1) Opioid dependence with withdrawal Current Visit: Yes Status: Acute (2) Alcohol dependence with uncomplicated withdrawal Current Visit: No Status: Chronic (3) Neuropathy Current Visit: No Status: Chronic (4) Nicotine dependence Current Visit: No Status: Chronic Qualifiers: Nicotine product type: cigarettes Substance use status: uncomplicated Qualified Code(s): F17.210 - Nicotine dependence, cigarettes, uncomplicated (5) History of right knee joint replacement Current Visit: Yes Status: Acute (6) Use of cane as ambulatory aid Current Visit: Yes Status: Acute Cleared for Admission [facility] - Detox or Rehab [facility] Level of Care: Medically Managed Detox Regimen/Protocol: Methadone/Librium Breathalyzer - Breathalyzer Breathalyzer: 0 Urine Drug Screen - Test Device Lot number: [id number] Expiration date: 11/25/20 - Control Is test valid?: Yes - Results Drug screen NEGATIVE: No Urine drug screen results: FEN-Fentanyl, MOP-Opiates, OXY-Oxycodone, BZO- Benzodiazepines Inpatient Rehab Admission - Rehab Decision to Admit Inpatient rehab admission?: No
[2019-03-08] MEDS ORDERED: NICOTINE POLACRILEX 2 MG GUM BUC PRN (14:57)
[2019-03-08] MEDS ORDERED: chlordiazePOXIDE HCL 25 MG CAPSULE PO PRN (14:57)
[2019-03-08] MEDS ORDERED: MENTHOL/PHENOL 1 EACH UD MM PRN (14:57)
[2019-03-08] MEDS ORDERED: MAG HYDROX/AL HYDROX/SIMETH 30 ML UNIT-DOSE CUP PO PRN (14:57)
[2019-03-08] MEDS ORDERED: BISMUTH SUBSALICYLATE 524 MG/30 ML UD PO PRN (14:57)
[2019-03-08] MEDS ORDERED: ACETAMINOPHEN 325 MG TABLET (FP) PO PRN ×2 (14:57)
[2019-03-08] MEDS ORDERED: hydrOXYzine PAMOATE 25 MG CAPSULE (FP) PO PRN (14:57)
[2019-03-08] MEDS ORDERED: MAGNESIUM CITRATE 300 ML BOTTLE PO PRN (14:57)
[2019-03-08] MEDS ORDERED: cloNIDine HCL 0.1 MG TABLET PO PRN (14:57)
[2019-03-08] MEDS ORDERED: METHOCARBAMOL 500 MG TABLET PO PRN (14:57)
[2019-03-08] MEDS ORDERED: IBUPROFEN 400 MG TABLET (FP) PO PRN (14:57)
[2019-03-08] MEDS ORDERED: METHADONE HCL 10 MG TABLET (FOR DETOX USE ONLY) PO ONE (14:57)
[2019-03-08] MEDS ORDERED: MAGNESIUM HYDROX 2400MG/30ML ORAL SUSPENSION 30 ML CUP PO PRN (14:57)
[2019-03-08] MEDS ORDERED: ALBUTEROL SO4 8 GM HFA INHALER IH PRN (15:07)
[2019-03-08] MEDS: NICOTINE 21 MG/24 HOURS TOPICAL PATCH TD SCH (15:43)
[2019-03-08] MEDS: chlordiazePOXIDE HCL 25 MG CAPSULE PO SCH ×2 (18:36→22:18)
[2019-03-08] MEDS: THIAMINE HCL 100 MG TABLET (FP) PO SCH (22:18)
[2019-03-08] MEDS: MELATONIN 5 MG TABLETS PO PRN (22:19)
[2019-03-09] MEDS: chlordiazePOXIDE HCL 25 MG CAPSULE PO SCH ×4 (04:53→22:22)
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
[2019-03-09] MEDS ORDERED: METHADONE HCL 10 MG TABLET (FOR DETOX USE ONLY) ONE (09:26)
[2019-03-09] MEDS ORDERED: METHADONE HCL 5 MG TABLET (FOR DETOX USE ONLY) ONE (09:26)
[2019-03-09] MEDS ORDERED: METHADONE (DETOX) 20 MG, METHADONE (DETOX) 5 MG PO ONE (10:00)
--- NOTE | 2019-03-09 10:00 | PN ---
[facility] CIWA - CIWA Score Nausea/Vomitin-No Nausea/No Vomiting Muscle Tremors: 3 Anxiety: 3 Agitation: 3 Paroxysmal Sweats: 3 Orientation: 0-Oriented Tacttile Disturbances: 0-None Auditory Disturbances: 0-None Visual Disturbances: 0-None Headache: 0-None Present CIWA-Ar Total Score: 12 BHS COWS - Scale Resting Pulse: 0= [place] 80 or Below Sweatin= Chills/Flushing Restless Observation: 0= Sits Still Pupil Size: 0= Normal to Room Light Bone or Joint Aches: 1= Mild Discomfort Runny Nose/ Eye Tearin= Runny Nose/Eyes GI Upset > 30mins: 1= Stomach Cramp Tremor Observation of Outstretched Hands: 2= Slight Tremor Visible Yawning Observation: 2= >3x During Session Anxiety or Irritability: 2=Irritable/Anxious Goose Flesh Skin: 0=Smooth Skin COWS Score: 11 [facility] Progress Note (SOAP) Subjective: shakes sweats interrupted sleep body aches agitation restless Objective: 03/09/19 09:58 Vital Signs Temperature 97.9 F 03/09/19 09:34 Pulse Rate 65 03/09/19 09:34 Respiratory Rate 16 03/09/19 09:34 Blood Pressure 137/81 03/09/19 09:34 O2 Sat by Pulse Oximetry (%) labs pending aaox3 ambulating no acute distress Assessment: 03/09/19 10:00 withdrawal sx Plan: continue detox increase fluids
[2019-03-09] MEDS: NICOTINE 21 MG/24 HOURS TOPICAL PATCH TD SCH (10:12)
[2019-03-09] MEDS: PRENATAL VITAMINS W/ FOLIC ACID TABLET (FP) PO SCH (10:12)
[2019-03-09 10:36] LABS: ALBUMIN 3.1 g/dl (3.4-5.0); BILIRUBIN,TOTAL 0.5 mg/dL (0.2-1); BLOOD UREA NITROGEN 9.7 mg/dL (7-18); CALCIUM 8.3 mg/dL (8.5-10.1); CREATININE 0.6 mg/dL (0.55-1.3); POTASSIUM 3.9 mmol/L (3.5-5.1); TOT PROT 6.1 g/dl (6.4-8.2)
[2019-03-09 12:10] LABS: HEMATOCRIT 36.9 % (35.4-49); HEMOGLOBIN 12.7 GM/dL (11.7-16.9); MCH 29.7 pg (25.7-33.7); MCHC 34.6 g/dl (32.0-35.9); MEAN CELL VOLUME 85.8 fl (80-96); MEAN PLT VOLUME 8.8 fl (7.5-11.1); PLATELET COUNT 115 K/MM3 (134-434); RDW 14.7 % (11.9-15.9); WHITE BLOOD COUNT 3.7 K/mm3 (4.0-10.0)
[2019-03-09 13:24] LABS: URINE APPEARANCE CLEAR; URINE BILIRUBIN NEGATIVE (NEGATIVE); URINE COLOR YELLOW; URINE GLUCOSE (UA) NEGATIVE (NEGATIVE); URINE KETONE NEGATIVE (NEGATIVE); URINE LEUK ESTERASE NEGATIVE (NEGATIVE); URINE NITRITE NEGATIVE (NEGATIVE); URINE PROTEIN NEGATIVE (NEGATIVE)
[2019-03-09] MEDS: MELATONIN 5 MG TABLETS PO PRN (22:22)
[2019-03-09] MEDS: THIAMINE HCL 100 MG TABLET (FP) PO SCH (22:22)
[2019-03-10] MEDS: chlordiazePOXIDE HCL 25 MG CAPSULE PO SCH ×4 (05:59→22:06)
[2019-03-10] MEDS ORDERED: METHADONE HCL 10 MG TABLET (FOR DETOX USE ONLY) PO ONE (10:00)
--- NOTE | 2019-03-10 10:48 | PN ---
[facility] CIWA - CIWA Score Nausea/Vomitin-No Nausea/No Vomiting Muscle Tremors: 3 Anxiety: 2 Agitation: 3 Paroxysmal Sweats: 2 Orientation: 0-Oriented Tacttile Disturbances: 0-None Auditory Disturbances: 0-None Visual Disturbances: 0-None Headache: 0-None Present CIWA-Ar Total Score: 10 BHS COWS - Scale Resting Pulse: 0= [place] 80 or Below Sweatin= Chills/Flushing Restless Observation: 1= Difficult to Sit Still Pupil Size: 0= Normal to Room Light Bone or Joint Aches: 2= Severe Diffuse Aches Runny Nose/ Eye Tearin= Nasal Congestion GI Upset > 30mins: 0= None Tremor Observation of Outstretched Hands: 1= Tremor [place], Not Seen Yawning Observation: 1= 1-2x During Session Anxiety or Irritability: 1=Feels Anxious/Irritable Goose Flesh Skin: 0=Smooth Skin COWS Score: 8 S Progress Note (SOAP) Subjective: tired sweats shakes interrupted sleep body aches Objective: 03/10/19 10:45 Vital Signs Temperature 98.3 F 03/10/19 09:34 Pulse Rate 62 03/10/19 09:34 Respiratory Rate 20 03/10/19 09:34 Blood Pressure 105/53 L 03/10/19 09:34 O2 Sat by Pulse Oximetry (%) Laboratory Tests 03/09/19 03/09/19 03/09/19 07:00 07:00 07:00 WBC 3.7 L RBC 4.30 Hgb 12.7 Hct 36.9 MCV 85.8 MCH 29.7 MCHC 34.6 RDW 14.7 Plt Count 115 L MPV 8.8 Sodium 140 Potassium 3.9 Chloride 106 Carbon Dioxide 28 Anion Gap 6 L BUN 9.7 Creatinine 0.6 Est GFR (CKD-EPI)AfAm 131.19 Est GFR (CKD-EPI)NonAf 113.19 Random Glucose 100 Calcium 8.3 L Total Bilirubin 0.5 AST 18 ALT 17 Alkaline Phosphatase 81 Total Protein 6.1 L Albumin 3.1 L Urine Color Urine Appearance Urine pH Ur Specific [place] Urine Protein Urine Glucose (UA) Urine Ketones Urine Blood Urine Nitrite Urine Bilirubin Urine Urobilinogen Ur Leukocyte Esterase RPR Titer Nonreactive 03/09/19 10:10 WBC RBC Hgb Hct MCV MCH MCHC RDW Plt Count MPV Sodium Potassium Chloride Carbon Dioxide Anion Gap BUN Creatinine Est GFR (CKD-EPI)AfAm Est GFR (CKD-EPI)NonAf Random Glucose Calcium Total Bilirubin AST ALT Alkaline Phosphatase Total Protein Albumin Urine Color Yellow Urine Appearance Clear Urine pH 7.0 Ur Specific [place] 1.012 Urine Protein Negative Urine Glucose (UA) Negative Urine Ketones Negative Urine Blood Negative Urine Nitrite Negative Urine Bilirubin Negative Urine Urobilinogen 1.0 Ur Leukocyte Esterase Negative RPR Titer labs noted aaox3 ambulating no acute distress Assessment: 03/10/19 10:47 withdrawal sx Plan: continue detox increase fluids
[2019-03-10] MEDS: PRENATAL VITAMINS W/ FOLIC ACID TABLET (FP) PO SCH (11:36)
[2019-03-10] MEDS: NICOTINE 21 MG/24 HOURS TOPICAL PATCH TD SCH (11:36)
[2019-03-10] MEDS: THIAMINE HCL 100 MG TABLET (FP) PO SCH (22:05)
[2019-03-10] MEDS: MELATONIN 5 MG TABLETS PO PRN (22:06)
[2019-03-11] MEDS ORDERED: chlordiazePOXIDE HCL 10 MG CAPSULE PO PRN
[2019-03-11] MEDS: chlordiazePOXIDE HCL 10 MG CAPSULE PO SCH ×4 (05:15→22:20)
[2019-03-11] MEDS ORDERED: METHADONE HCL 10 MG TABLET (FOR DETOX USE ONLY) ONE (09:13)
[2019-03-11] MEDS ORDERED: METHADONE HCL 5 MG TABLET (FOR DETOX USE ONLY) ONE (09:13)
[2019-03-11] MEDS ORDERED: METHADONE (DETOX) 10 MG, METHADONE (DETOX) 5 MG PO ONE (10:00)
[2019-03-11] MEDS: PRENATAL VITAMINS W/ FOLIC ACID TABLET (FP) PO SCH (10:08)
[2019-03-11] MEDS: NICOTINE 21 MG/24 HOURS TOPICAL PATCH TD SCH (10:08)
--- NOTE | 2019-03-11 13:26 | PN ---
[facility] CIWA - CIWA Score Nausea/Vomitin-No Nausea/No Vomiting Muscle Tremors: 3 Anxiety: 2 Agitation: 0-Normal Activity Paroxysmal Sweats: 3 Orientation: 2-Disoriented Date<2 days Tacttile Disturbances: 0-None Auditory Disturbances: 1-Very Mild Visual Disturbances: 0-None Headache: 0-None Present CIWA-Ar Total Score: 11 S COWS - Scale Resting Pulse: 0= [place] 80 or Below Sweatin= Chills/Flushing Restless Observation: 0= Sits Still Pupil Size: 0= Normal to Room Light Bone or Joint Aches: 1= Mild Discomfort Runny Nose/ Eye Tearin= None GI Upset > 30mins: 0= None Tremor Observation of Outstretched Hands: 2= Slight Tremor Visible Yawning Observation: 1= 1-2x During Session Anxiety or Irritability: 2=Irritable/Anxious Goose Flesh Skin: 0=Smooth Skin COWS Score: 7 [facility] Progress Note (SOAP) Subjective: Sweating, Tremors, Fatigue. Objective: PATIENT A & O X 2 (UNCERTAIN ABOUT CURRENT DAY / DATE). IN NO ACUTE DISTRESS. 03/11/19 13:27 Vital Signs Temperature 97.3 F L 03/11/19 09:34 Pulse Rate 64 03/11/19 09:34 Respiratory Rate 18 03/11/19 09:34 Blood Pressure 102/56 L 03/11/19 09:34 O2 Sat by Pulse Oximetry (%) Laboratory Tests 03/09/19 03/09/19 03/09/19 07:00 07:00 07:00 WBC 3.7 L RBC 4.30 Hgb 12.7 Hct 36.9 MCV 85.8 MCH 29.7 MCHC 34.6 RDW 14.7 Plt Count 115 L MPV 8.8 Sodium 140 Potassium 3.9 Chloride 106 Carbon Dioxide 28 Anion Gap 6 L BUN 9.7 Creatinine 0.6 Est GFR (CKD-EPI)AfAm 131.19 Est GFR (CKD-EPI)NonAf 113.19 Random Glucose 100 Calcium 8.3 L Total Bilirubin 0.5 AST 18 ALT 17 Alkaline Phosphatase 81 Total Protein 6.1 L Albumin 3.1 L Urine Color Urine Appearance Urine pH Ur Specific [place] Urine Protein Urine Glucose (UA) Urine Ketones Urine Blood Urine Nitrite Urine Bilirubin Urine Urobilinogen Ur Leukocyte Esterase RPR Titer Nonreactive 03/09/19 10:10 WBC RBC Hgb Hct MCV MCH MCHC RDW Plt Count MPV Sodium Potassium Chloride Carbon Dioxide Anion Gap BUN Creatinine Est GFR (CKD-EPI)AfAm Est GFR (CKD-EPI)NonAf Random Glucose Calcium Total Bilirubin AST ALT Alkaline Phosphatase Total Protein Albumin Urine Color Yellow Urine Appearance Clear Urine pH 7.0 Ur Specific [place] 1.012 Urine Protein Negative Urine Glucose (UA) Negative Urine Ketones Negative Urine Blood Negative Urine Nitrite Negative Urine Bilirubin Negative Urine Urobilinogen 1.0 Ur Leukocyte Esterase Negative RPR Titer LABS NOTED. PATIENT HAS HAD LOW PLATELET LEVELS ON PREVIOUS ADMISSIONS. 03/11/19 13:28 Assessment: 03/11/19 13:28 WITHDRAWAL SYMPTOMS. LEUKOPENIA. THROMBOCYTOPENIA. Plan: CONTINUE DETOX.
[2019-03-11] MEDS: THIAMINE HCL 100 MG TABLET (FP) PO SCH (22:20)
[2019-03-11] MEDS: MELATONIN 5 MG TABLETS PO PRN (22:20)
[2019-03-12] MEDS: chlordiazePOXIDE HCL 10 MG CAPSULE PO SCH ×2 (06:33→16:44)
--- NOTE | 2019-03-12 09:51 | PN ---
[facility] CIWA - CIWA Score Nausea/Vomitin-No Nausea/No Vomiting Muscle Tremors: None Anxiety: 3 Agitation: 0-Normal Activity Paroxysmal Sweats: 2 Orientation: 0-Oriented Tacttile Disturbances: 0-None Auditory Disturbances: 0-None Visual Disturbances: 0-None Headache: 0-None Present CIWA-Ar Total Score: 5 S COWS - Scale Resting Pulse: 0= [place] 80 or Below Sweatin= Chills/Flushing Restless Observation: 0= Sits Still Pupil Size: 0= Normal to Room Light Bone or Joint Aches: 2= Severe Diffuse Aches Runny Nose/ Eye Tearin= None GI Upset > 30mins: 0= None Tremor Observation of Outstretched Hands: 0= None Yawning Observation: 0= None Anxiety or Irritability: 2=Irritable/Anxious Goose Flesh Skin: 0=Smooth Skin COWS Score: 5 [facility] Progress Note (SOAP) Subjective: c/o anxiety, irritability, and headache. Objective: 03/12/19 09:50 Vital Signs 03/12/19 03/12/19 03/12/19 03:30 08: 09:40 Temperature 97.5 F L 98.2 F Pulse Rate 53 L 60 Respiratory 18 18 18 Rate Blood Pressure 117/66 99/67 Lab Results WBC 3.7 K/mm3 (4.0-10.0) L 03/09/19 07:00 RBC 4.30 M/mm3 (4.00-5.60) 03/09/19 07:00 Hgb 12.7 GM/dL (11.7-16.9) 03/09/19 07:00 Hct 36.9 % (35.4-49) 03/09/19 07:00 MCV 85.8 fl (80-96) 03/09/19 07:00 MCHC 34.6 g/dl (32.0-35.9) 03/09/19 07:00 RDW 14.7 % (11.9-15.9) 03/09/19 07:00 Plt Count 115 K/MM3 (134-434) L 03/09/19 07:00 Sodium 140 mmol/L (136-145) 03/09/19 07:00 Potassium 3.9 mmol/L (3.5-5.1) 03/09/19 07:00 Chloride 106 mmol/L (98-107) 03/09/19 07:00 Carbon Dioxide 28 mmol/L (21-32) 03/09/19 07:00 Anion Gap 6 MMOL/L (8-16) L 03/09/19 07:00 BUN 9.7 mg/dL (7-18) 03/09/19 07:00 Creatinine 0.6 mg/dL (0.55-1.3) 03/09/19 07:00 Random Glucose 100 mg/dL (74-106) 03/09/19 07:00 Calcium 8.3 mg/dL (8.5-10.1) L 03/09/19 07:00 labs noted. Assessment: 03/12/19 09:51 AOX3, in no acute respiratory distress. Full ROM, ambulating in the unit. withdrawal symptoms. For discharge 03/13/19 03/12/19 09:51 Plan: continue detox. D/C in AM.
[2019-03-12] MEDS: PRENATAL VITAMINS W/ FOLIC ACID TABLET (FP) PO SCH (09:53)
[2019-03-12] MEDS: NICOTINE 21 MG/24 HOURS TOPICAL PATCH TD SCH (09:53)
[2019-03-12] MEDS ORDERED: METHADONE HCL 10 MG TABLET (FOR DETOX USE ONLY) PO ONE (10:00)
[2019-03-12] MEDS: MELATONIN 5 MG TABLETS PO PRN (22:03)
[2019-03-12] MEDS: THIAMINE HCL 100 MG TABLET (FP) PO SCH (22:03)
[2019-03-13] MEDS ORDERED: chlordiazePOXIDE HCL 10 MG CAPSULE PO ONE (05:00)
[2019-03-13] MEDS ORDERED: METHADONE HCL 5 MG TABLET (FOR DETOX USE ONLY) PO ONE (06:00)
[2019-03-13 07:03] VITALS: BP 112/61; PULSE 53; TEMP 97.5
--- NOTE | 2019-03-13 10:48 | DS ---
[facility] Detox Discharge Summary Admission Date: 03/08/19 Discharge Date: 03/13/19 - History Present History: Alcohol Dependence, Opioid Dependence Additional Comments: Pt is medically cleared and is discharged today. Pt completed his detox protocol. Pt is encouraged to follow-up with CD outpatient program and also to follow-up with his pmd. Pt verbalized understanding. Pt is alert and oriented x3 and in no respiratory distress. Pertinent Past History: Heroin and alcohol use disorder. - Physical Exam Results Vital Signs: Vital Signs Temperature 97.5 F L 03/13/19 06:00 Pulse Rate 53 L 03/13/19 06:00 Respiratory Rate 20 03/13/19 06:00 Blood Pressure 112/61 03/13/19 06:00 O2 Sat by Pulse Oximetry (%) Vital Signs 03/13/19 03/13/19 03:30 06:00 Temperature 97.5 F L Pulse Rate 53 L Respiratory 18 20 Rate Blood Pressure 112/61 Lab Results WBC 3.7 K/mm3 (4.0-10.0) L 03/09/19 07:00 RBC 4.30 M/mm3 (4.00-5.60) 03/09/19 07:00 Hgb 12.7 GM/dL (11.7-16.9) 03/09/19 07:00 Hct 36.9 % (35.4-49) 03/09/19 07:00 MCV 85.8 fl (80-96) 03/09/19 07:00 MCHC 34.6 g/dl (32.0-35.9) 03/09/19 07:00 RDW 14.7 % (11.9-15.9) 03/09/19 07:00 Plt Count 115 K/MM3 (134-434) L 03/09/19 07:00 Sodium 140 mmol/L (136-145) 03/09/19 07:00 Potassium 3.9 mmol/L (3.5-5.1) 03/09/19 07:00 Chloride 106 mmol/L (98-107) 03/09/19 07:00 Carbon Dioxide 28 mmol/L (21-32) 03/09/19 07:00 Anion Gap 6 MMOL/L (8-16) L 03/09/19 07:00 BUN 9.7 mg/dL (7-18) 03/09/19 07:00 Creatinine 0.6 mg/dL (0.55-1.3) 03/09/19 07:00 Random Glucose 100 mg/dL (74-106) 03/09/19 07:00 Calcium 8.3 mg/dL (8.5-10.1) L 03/09/19 07:00 Labs noted. Pertinent Admission Physical Exam Findings: withdrawal symptoms. - Treatment Hospital Course: Detox Protocol Followed, Detoxed Safely, Responded well, Discharged Condition Good - Medication Discharge Medications: Ambulatory Orders Gabapentin [Neurontin] 600 mg PO TID 01/02/19 Albuterol Sulfate Inhaler - [Ventolin Hfa Inhaler -] 1 - 2 inh PO QID #1 inhaler 03/12/19 - Diagnosis (1) Leukopenia Status: Acute (2) Opioid dependence with withdrawal Status: Acute (3) Thrombocytopenia Status: Acute (4) Use of cane as ambulatory aid Status: Acute (5) Alcohol dependence with uncomplicated withdrawal Status: Acute (6) Carpal tunnel syndrome, left Status: Chronic (7) Low back pain Status: Chronic Qualifiers: Chronicity: chronic Back pain laterality: bilateral Sciatica presence: with sciatica Sciatica laterality: bilateral sciatica Qualified Code(s): M54.42 - Lumbago with sciatica, left side; M54.41 - Lumbago with sciatica, right side; G89.29 - Other chronic pain (8) Neuropathy Status: Chronic (9) Nicotine dependence Status: Chronic Qualifiers: Nicotine product type: cigarettes Substance use status: uncomplicated Qualified Code(s): F17.210 - Nicotine dependence, cigarettes, uncomplicated - AMA Did Patient Leave Against Medical Advice: No S CIWA - CIWA Score Nausea/Vomitin-No Nausea/No Vomiting Muscle Tremors: None Anxiety: 0-No Anxiety, at Ease Agitation: 0-Normal Activity Paroxysmal Sweats: 3 Orientation: 0-Oriented Tacttile Disturbances: 0-None Auditory Disturbances: 0-None Visual Disturbances: 0-None Headache: 0-None Present CIWA-Ar Total Score: 3 BHS COWS - Scale Resting Pulse: 0= [place] 80 or Below Sweatin= No chills or Flushing Restless Observation: 0= Sits Still Pupil Size: 0= Normal to Room Light Bone or Joint Aches: 1= Mild Discomfort Runny Nose/ Eye Tearin= None GI Upset > 30mins: 0= None Tremor Observation of Outstretched Hands: 0= None Yawning Observation: 1= 1-2x During Session Anxiety or Irritability: 0= None Goose Flesh Skin: 0=Smooth Skin COWS Score: 2
== END 2019-03-13 09:41 | disposition home or self-care (01) | DRG 897 ==
LOC: YASAS 09:31 → Y6N 14:56
PROVIDERS: ADMIT Surgery; ATTEND Surgery
PROC: HZ2ZZZZ Detoxification Services for Substance Abuse Treatment (ICD-10-PCS; principal; 2019-03-08)
DX: F11.23 Opioid dependence with withdrawal (principal); F19.282 Other psychoactive substance dependence with psychoactive substance-induced sleep disorder; F10.230 Alcohol dependence with withdrawal, uncomplicated; F17.210 Nicotine dependence, cigarettes, uncomplicated; F39 Unspecified mood [affective] disorder; F31.9 Bipolar disorder, unspecified; D72.819 Decreased white blood cell count, unspecified; D69.6 Thrombocytopenia, unspecified; G56.02 Carpal tunnel syndrome, left upper limb; M54.42 Lumbago with sciatica, left side; M54.41 Lumbago with sciatica, right side; G89.29 Other chronic pain; G62.9 Polyneuropathy, unspecified; R26.2 Difficulty in walking, not elsewhere classified; Z99.89 Dependence on other enabling machines and devices; Z96.651 Presence of right artificial knee joint
CPT/HCPCS: 36415; 80053; 81003; 85027; 86593; J0735

== ENCOUNTER 2019-04-07 09:18 | Inpatient (IN) | payer OTHER ==
[2019-04-07 10:45] VITALS: BMI 33.6
--- NOTE | 2019-04-07 11:43 | HP ---
COWS - Scale Resting Pulse: 0= [place] 80 or Below Sweatin= Chills/Flushing Restless Observation: 1= Difficult to Sit Still Pupil Size: 0= Normal to Room Light Bone or Joint Aches: 2= Severe Diffuse Aches Runny Nose/ Eye Tearin= Constantly Teary/Runny GI Upset > 30mins: 1= Stomach Cramp Tremor Observation: 1= Tremor [place], Not Seen Yawning Observation: 2= >3x During Session Anxiety or Irritability: 2=Irritable/Anxious Goose Flesh Skin: 0=Smooth Skin COWS Score: 14 CIWA Score Nausea/Vomitin-No Nausea/No Vomiting Muscle Tremors: 1-None Visible, but [place] Anxiety: 4-Mod. Anxious/Guarded Agitation: 4-Moderately Restless Paroxysmal Sweats: No Perspiration Orientation: 1-Uncertain about Date Tacttile Disturbances: 0-None Auditory Disturbances: 0-None Visual Disturbances: 2-Mild Sensitivity Headache: 0-None Present CIWA-Ar Total Score: 12 - Admission Criteria OASAS Guidelines: Admission for Medically Managed Detox: Requires at least one of the followin. CIWA greater than 12 2. Seizures within the past 24 hours 3. Delirium tremens within the past 24 hours 4. Hallucinations within the past 24 hours 5. Acute intervention needed for co occurring medical disorder 6. Acute intervention needed for co occurring psychiatric disorder 7. Severe withdrawal that cannot be handled at a lower level of care (continued vomiting, continued diarrhea, abnormal vital signs) requiring intravenous medication and/or fluids 8. Admission ROS [facility] Allergies/Adverse Reactions: Allergies Allergy/AdvReac Type Severity Reaction Status Date / Time No Known Allergies Allergy Verified 04/07/19 10:33 History of Present Illness: This report was requested by: Ann-Marie Hernandez | Reference #: [id number] Others' Prescriptions Patient Name: Marcelino Moser Date: 1965 Address: [place] [address] Sex: Male Rx Written Rx Dispensed Drug Quantity Days Supply Prescriber Name 12/23/2018 12/24/2018 chlordiazepoxide 25 mg capsule 8 2 Markel Mcbride 10/06/2018 10/07/2018 chlordiazepoxide 25 mg capsule 8 2 Dilip Martinez (MAURICIO) 09/03/2018 09/04/2018 chlordiazepoxide 25 mg capsule 8 2 Markel Mcbride Patient Name: Marcelino Moser Date: 1965 Address: [place] [address] Sex: Male Rx Written Rx Dispensed Drug Quantity Days Supply Prescriber Name 11/24/2018 11/24/2018 oxycodone hcl 20 mg tablet 90 30 Pedro Garcia MD 10/24/2018 10/24/2018 oxycodone hcl 20 mg tablet 90 30 Pedro Garcia MD 09/22/2018 09/22/2018 oxycodone hcl 20 mg tablet 90 30 Pedro Garcia MD 08/22/2018 08/22/2018 oxycodone hcl 20 mg tablet 90 30 Pedro Garcia MD 07/21/2018 07/21/2018 oxycodone hcl 20 mg tablet 90 30 Pedro Garcia MD 06/20/2018 06/20/2018 oxycodone hcl 20 mg tablet 90 30 Pedro Garcia MD 05/21/2018 05/21/2018 oxycodone hcl 20 mg tablet 90 30 Pedro Garcia MD 04/21/2018 04/21/2018 oxycodone hcl 15 mg tablet 90 30 Pedro Garcia MD pt here requesting detox from heroin and etoh , reports relapse after d/c from this facility , current symptoms as above. heroin : 15 bags/day via inhalation and IVDU since age 15 " on and off " longest sobriety 5 years w/ meetings [id number], latest use yesterday 11 pm , OD 1`2 years ago . no Narcan @ home. \\mts - reports 2 days ago bought 20 mg Methadone illicitly fentanyl- denies oxycodone - denies mdma- denies benzo -denies alcohol : 12-15 x 18 oz beer /day since 6 months ago , reports tremors if not drinking , latest use yesterday 11 pm + blackouts , denies seizures . tobacco : 1 ppd , considering smoking cessation , requesting nrt w/ patch . pmhx : chronic pain LB , LE neuropathy , asthma x 3-4 years denies other medical issues pshx : R knee partial replacement 12 years ago . psych : denies SHx : rented from sister , per pt " I just got kicked out, I can't go back " Exam Limitations: Clinical Condition - Ebola screening Have you traveled outside of the country in the last 21 days: No (N) Have you had contact with anyone from an Ebola affected area: No - Review of Systems Constitutional: Loss of Appetite, Unintentional Wgt. Loss EENT: reports: Tearing, Nose Congestion, Other (glasses) Respiratory: reports: No Symptoms reported Cardiac: reports: No Symptoms Reported GI: reports: Poor Appetite, Abdominal cramping : reports: No Symptoms Reported Musculoskeletal: reports: Back Pain (chronic , using cane for ambulation for a long time .) Integumentary: reports: See HPI Neuro: reports: Unsteady Gait Endocrine: reports: No Symptoms Reported Psychiatric: reports: Orientated x3, Anxious Patient History - Patient Medical History Hx Anemia: No Hx Asthma: No Hx Chronic Obstructive Pulmonary Disease (COPD): No Hx Cancer: No Hx Cardiac Disorders: No Hx Congestive Heart Failure: No Hx Hypertension: No Hx Hypercholesterolemia: No Hx Pacemaker: No HX Cerebrovascular Accident: No Hx Seizures: No Hx Dementia: No Hx Diabetes: No Hx Gastrointestinal Disorders: No Hx Liver Disease: No Hx Genitourinary Disorders: No Hx Sexually Transmitted Disorders: No Hx Renal Disease (ESRD): No Hx Thyroid Disease: No Hx Human Immunodeficiency Virus (HIV): No (negative last 2016 ) Hx Hepatitis C: No (negative) Hx Depression: Yes (anxiety,insomnia) Hx Suicide Attempt: No Hx Bipolar Disorder: No Hx Schizophrenia: No - Patient Surgical History Past Surgical History: Yes Hx Neurologic Surgery: No Hx Cataract Extraction: No Hx Cardiac Surgery: No Hx Lung Surgery: No Hx Breast Surgery: No Hx Breast Biopsy: No Hx Abdominal Surgery: No Hx Appendectomy: No Hx Cholecystectomy: No Hx Genitourinary Surgery: No Hx Section: No Hx Orthopedic Surgery: Yes (right knee replacement 2000; left ACL repair 2009) - PPD History Date: 01/04/19 Results: 0 mm - Smoking Cessation Smoking history: Current every day smoker Have you smoked in the past 12 months: Yes Aproximately how many cigarettes per day: 20 Hx Chewing Tobacco Use: No Initiated information on smoking cessation: No - Substances abused Heroin Substance route: Inhalation Frequency: Daily Amount used: 15 bags Age of first use: 15 Date of last use: 04/06/19 Alcohol Substance route: Oral Frequency: Daily Amount used: 18 onces of beer-10-12 bottles Age of first use: 15 Date of last use: 04/06/19 Family Disease History - Family Disease History Family Disease History: Heart Disease: Mother (htn, breast cancer, alive), CA: Father (pancreatic cancer, alive, heroin use), Mother, Other: Brother (etoh, cocaine) Admission Physical Exam BHS - Vital Signs Vital Signs: Vital Signs - 24 hr 04/07/19 10:38 Temperature 97.7 F Pulse Rate 79 Respiratory 18 Rate Blood Pressure 125/77 - Physical General Appearance: Yes: Mild Distress, Moderate Distress, Irritable, Anxious HEENTM: Yes: EOMI, Hearing grossly Normal, Normocephalic, Normal Voice, Nasal Congestion, Rhinorrhea, Other (poor dentition, mnay misisng teeth) Respiratory: Yes: Chest Non-Tender, Lungs Clear, Normal Breath Sounds, No Respiratory Distress, No Accessory Muscle Use Neck: Yes: No masses,lesions,Nodules, Trachea in good position Cardiology: Yes: Regular Rhythm, Regular Rate, S1, S2, Other (QTc 471 ms on 01/02) Abdominal: Yes: Non Tender, Soft, Protuberent Musculoskeletal: Yes: Back pain, Other (unsteady gait, using cane for ambulation / balance and stability .) Extremities: Yes: Non-Tender, Tremors, Pedal Edema (neal LE right knee surgical scar ( TKR)), Other (neal Vth PIP F contracture, DUpuytern's neal) Neurological: Yes: Fully Oriented, Alert, Depressed Affect Integumentary: Yes: Warm, Track [place] - Diagnostic (1) Alcohol dependence with uncomplicated withdrawal Current Visit: Yes Status: Acute (2) Opioid dependence with withdrawal Current Visit: Yes Status: Acute Breathalyzer - Breathalyzer Breathalyzer: 0 Urine Drug Screen - Test Device Lot number: [id number] Expiration date: 12/26/20 - Control Is test valid?: Yes - Results Drug screen NEGATIVE: No Urine drug screen results: FEN-Fentanyl, MOP-Opiates, OXY-Oxycodone, MTD- Methadone, BZO-Benzodiazepines, MDMA-Ecstasy Inpatient Rehab Admission - Rehab Decision to Admit Inpatient rehab admission?: No
[2019-04-07] MEDS ORDERED: ALBUTEROL SO4 8 GM HFA INHALER IH PRN (11:59)
[2019-04-07] MEDS ORDERED: MAGNESIUM CITRATE 300 ML BOTTLE PO PRN (12:01)
[2019-04-07] MEDS ORDERED: MENTHOL/PHENOL 1 EACH UD MM PRN (12:01)
[2019-04-07] MEDS ORDERED: ACETAMINOPHEN 325 MG TABLET (FP) PO PRN ×2 (12:01)
[2019-04-07] MEDS ORDERED: MAGNESIUM HYDROX 2400MG/30ML ORAL SUSPENSION 30 ML CUP PO PRN (12:01)
[2019-04-07] MEDS ORDERED: IBUPROFEN 400 MG TABLET (FP) PO PRN (12:01)
[2019-04-07] MEDS ORDERED: cloNIDine HCL 0.1 MG TABLET PO PRN (12:03)
[2019-04-07] MEDS ORDERED: chlordiazePOXIDE HCL 10 MG CAPSULE PO PRN (12:04)
[2019-04-07] MEDS ORDERED: METHADONE HCL 10 MG TABLET (FOR DETOX USE ONLY) PO ONE (12:35)
[2019-04-07] MEDS: chlordiazePOXIDE HCL 25 MG CAPSULE PO SCH ×2 (13:46→21:18)
[2019-04-07] MEDS: NICOTINE 14 MG/24 HOURS TOPICAL PATCH TD SCH (13:47)
[2019-04-07] MEDS: THIAMINE HCL 100 MG TABLET (FP) PO SCH (22:18)
[2019-04-07] MEDS: METHOCARBAMOL 500 MG TABLET PO PRN (22:20)
[2019-04-08] MEDS: MAG HYDROX/AL HYDROX/SIMETH 30 ML UNIT-DOSE CUP PO PRN ×2 (01:01→10:14)
[2019-04-08] MEDS: chlordiazePOXIDE HCL 25 MG CAPSULE PO SCH ×3 (06:43→21:21)
[2019-04-08] MEDS: BISMUTH SUBSALICYLATE 262 MG/15 ML BTL PO PRN ×2 (06:44→12:54)
[2019-04-08] MEDS ORDERED: METHADONE HCL 10 MG TABLET (FOR DETOX USE ONLY) ONE (09:01)
[2019-04-08] MEDS ORDERED: METHADONE HCL 5 MG TABLET (FOR DETOX USE ONLY) ONE (09:01)
[2019-04-08] MEDS ORDERED: METHADONE (DETOX) 20 MG, METHADONE (DETOX) 5 MG PO ONE (10:00)
[2019-04-08] MEDS: NICOTINE 14 MG/24 HOURS TOPICAL PATCH TD SCH (10:13)
[2019-04-08] MEDS: PRENATAL VITAMINS W/ FOLIC ACID TABLET (FP) PO SCH (10:13)
[2019-04-08] MEDS ORDERED: TRIMETHOBENZAMIDE HCL 300 MG CAPSULE PO PRN (10:46)
--- NOTE | 2019-04-08 10:46 | PN ---
[facility] CIWA - CIWA Score Nausea/Vomitin-Mild Nausea/No Vomiting Muscle Tremors: 4-Moderate,w/Arms Extend Anxiety: 4-Mod. Anxious/Guarded Agitation: 4-Moderately Restless Paroxysmal Sweats: 3 Orientation: 0-Oriented Tacttile Disturbances: 0-None Auditory Disturbances: 0-None Visual Disturbances: 0-None Headache: 0-None Present CIWA-Ar Total Score: 16 BHS COWS - Scale Resting Pulse: 0= [place] 80 or Below Sweatin=Flushed/Facial Moisture Restless Observation: 1= Difficult to Sit Still Pupil Size: 0= Normal to Room Light Bone or Joint Aches: 2= Severe Diffuse Aches Runny Nose/ Eye Tearin= Runny Nose/Eyes GI Upset > 30mins: 2= Nausea/Diarrhea Tremor Observation of Outstretched Hands: 2= Slight Tremor Visible Yawning Observation: 2= >3x During Session Anxiety or Irritability: 1=Feels Anxious/Irritable Goose Flesh Skin: 3=Piloerection COWS Score: 17 [facility] Progress Note (SOAP) Subjective: sweats shakes body aches chills interrupted sleep nausea anxiety Objective: 04/08/19 10:45 Vital Signs Temperature 97.9 F 04/08/19 09:39 Pulse Rate 72 04/08/19 09:39 Respiratory Rate 20 04/08/19 09:39 Blood Pressure 119/71 04/08/19 09:39 O2 Sat by Pulse Oximetry (%) pending labs aaox3 lying in bed no acute distress Assessment: 04/08/19 10:46 withdrawal sx Plan: continue detox increase fluids pending labs jose d mott prn
[2019-04-08] MEDS: MELATONIN 5 MG TABLETS PO PRN (21:21)
[2019-04-08] MEDS: THIAMINE HCL 100 MG TABLET (FP) PO SCH (21:28)
[2019-04-09] MEDS: chlordiazePOXIDE 5 MG CAPSULE PO SCH ×3 (06:02→22:14)
[2019-04-09] MEDS ORDERED: METHADONE HCL 10 MG TABLET (FOR DETOX USE ONLY) PO ONE (10:00)
[2019-04-09] MEDS: NICOTINE 14 MG/24 HOURS TOPICAL PATCH TD SCH (10:41)
[2019-04-09] MEDS: PRENATAL VITAMINS W/ FOLIC ACID TABLET (FP) PO SCH (10:42)
--- NOTE | 2019-04-09 12:49 | PN ---
[facility] CIWA - CIWA Score Nausea/Vomitin-No Nausea/No Vomiting Muscle Tremors: 2 Anxiety: 1-Mildly Anxious Agitation: 2 Paroxysmal Sweats: 2 Orientation: 0-Oriented Tacttile Disturbances: 0-None Auditory Disturbances: 0-None Visual Disturbances: 0-None Headache: 0-None Present CIWA-Ar Total Score: 7 BHS COWS - Scale Resting Pulse: 0= [place] 80 or Below Sweatin= Chills/Flushing Restless Observation: 0= Sits Still Pupil Size: 0= Normal to Room Light Bone or Joint Aches: 1= Mild Discomfort Runny Nose/ Eye Tearin= Nasal Congestion GI Upset > 30mins: 0= None Tremor Observation of Outstretched Hands: 1= Tremor [place], Not Seen Yawning Observation: 2= >3x During Session Anxiety or Irritability: 1=Feels Anxious/Irritable Goose Flesh Skin: 0=Smooth Skin COWS Score: 7 [facility] Progress Note (SOAP) Subjective: sweats mild shakes interrupted sleep feeling better than yesterday Objective: 04/09/19 12:47 Vital Signs Temperature 97.7 F 04/09/19 09:31 Pulse Rate 63 04/09/19 09:31 Respiratory Rate 18 04/09/19 09:31 Blood Pressure 127/75 04/09/19 09:31 O2 Sat by Pulse Oximetry (%) labs were drawn on his last visit in february 2019. labs WNL. no need for testing aaox3 ambulating no acute distress 04/09/19 12:48 Assessment: 04/09/19 12:47 withdrawals Plan: continue detox increase fluids
[2019-04-09] MEDS: MELATONIN 5 MG TABLETS PO PRN (22:14)
[2019-04-09] MEDS: THIAMINE HCL 100 MG TABLET (FP) PO SCH (22:14)
[2019-04-10] MEDS ORDERED: chlordiazePOXIDE HCL 10 MG CAPSULE PO PRN
[2019-04-10] MEDS: MAG HYDROX/AL HYDROX/SIMETH 30 ML UNIT-DOSE CUP PO PRN ×2 (01:09→22:34)
[2019-04-10] MEDS: chlordiazePOXIDE HCL 10 MG CAPSULE PO SCH ×3 (05:17→22:33)
[2019-04-10] MEDS ORDERED: METHADONE HCL 5 MG TABLET (FOR DETOX USE ONLY) ONE (09:12)
[2019-04-10] MEDS ORDERED: METHADONE HCL 10 MG TABLET (FOR DETOX USE ONLY) ONE (09:12)
[2019-04-10] MEDS ORDERED: METHADONE (DETOX) 10 MG, METHADONE (DETOX) 5 MG PO ONE (10:00)
[2019-04-10] MEDS: NICOTINE 14 MG/24 HOURS TOPICAL PATCH TD SCH (10:19)
[2019-04-10] MEDS: PRENATAL VITAMINS W/ FOLIC ACID TABLET (FP) PO SCH (10:20)
--- NOTE | 2019-04-10 11:36 | PN ---
[facility] CIWA - CIWA Score Nausea/Vomitin-No Nausea/No Vomiting Muscle Tremors: 2 Anxiety: 1-Mildly Anxious Agitation: 2 Paroxysmal Sweats: No Perspiration Orientation: 0-Oriented Tacttile Disturbances: 0-None Auditory Disturbances: 0-None Visual Disturbances: 0-None Headache: 0-None Present CIWA-Ar Total Score: 5 BHS COWS - Scale Resting Pulse: 0= [place] 80 or Below Sweatin= Chills/Flushing Restless Observation: 1= Difficult to Sit Still Pupil Size: 0= Normal to Room Light Bone or Joint Aches: 1= Mild Discomfort Runny Nose/ Eye Tearin= None GI Upset > 30mins: 0= None Tremor Observation of Outstretched Hands: 1= Tremor [place], Not Seen Yawning Observation: 0= None Anxiety or Irritability: 1=Feels Anxious/Irritable Goose Flesh Skin: 0=Smooth Skin COWS Score: 5 S Progress Note (SOAP) Subjective: anxiety sweats mild shakes Objective: 04/10/19 11:35 Vital Signs Temperature 97.2 F L 04/10/19 09:38 Pulse Rate 60 04/10/19 09:38 Respiratory Rate 18 04/10/19 09:38 Blood Pressure 123/71 04/10/19 09:38 O2 Sat by Pulse Oximetry (%) aaox3 ambulating no acute distress Assessment: 04/10/19 11:35 mild withdrawals Plan: continue detox increase fluids d/c on saturday; pt has opportunity to go to [place] for inpatient rehab.
[2019-04-10] MEDS: hydrOXYzine PAMOATE 25 MG CAPSULE (FP) PO PRN (15:28)
[2019-04-10] MEDS: THIAMINE HCL 100 MG TABLET (FP) PO SCH (22:33)
[2019-04-10] MEDS: MELATONIN 5 MG TABLETS PO PRN (22:34)
[2019-04-11] MEDS ORDERED: chlordiazePOXIDE HCL 10 MG CAPSULE PO ONE (05:00)
[2019-04-11] MEDS ORDERED: METHADONE HCL 10 MG TABLET (FOR DETOX USE ONLY) PO ONE (10:00)
[2019-04-11] MEDS: PRENATAL VITAMINS W/ FOLIC ACID TABLET (FP) PO SCH (10:17)
[2019-04-11] MEDS: NICOTINE 14 MG/24 HOURS TOPICAL PATCH TD SCH (10:17)
[2019-04-11] MEDS: hydrOXYzine PAMOATE 25 MG CAPSULE (FP) PO PRN ×2 (10:18→19:18)
[2019-04-11] MEDS: METHOCARBAMOL 500 MG TABLET PO PRN ×2 (10:18→22:15)
--- NOTE | 2019-04-11 12:48 | PN ---
[facility] CIWA - CIWA Score Nausea/Vomitin-No Nausea/No Vomiting Muscle Tremors: None Anxiety: 2 Agitation: 0-Normal Activity Paroxysmal Sweats: 2 Orientation: 0-Oriented Tacttile Disturbances: 0-None Auditory Disturbances: 0-None Visual Disturbances: 0-None Headache: 0-None Present CIWA-Ar Total Score: 4 S COWS - Scale Resting Pulse: 0= [place] 80 or Below Sweatin= Chills/Flushing Restless Observation: 0= Sits Still Pupil Size: 0= Normal to Room Light Bone or Joint Aches: 0= None Runny Nose/ Eye Tearin= None GI Upset > 30mins: 0= None Tremor Observation of Outstretched Hands: 0= None Yawning Observation: 1= 1-2x During Session Anxiety or Irritability: 1=Feels Anxious/Irritable Goose Flesh Skin: 0=Smooth Skin COWS Score: 3 S Progress Note (SOAP) Subjective: c/o sweats, mild anxiety and irritability. Objective: 04/11/19 12:46 Vital Signs 04/11/19 04/11/19 07:21 09:24 Temperature 97.7 F 97.3 F L Pulse Rate 51 L 54 L Respiratory 18 18 Rate Blood Pressure 119/69 134/79 Assessment: 04/11/19 12:46 AOX3, in no acute respiratory distress. Full ROM, ambulating in the unit. mild withdrawal symptoms. For D/C 04/12/19. 04/11/19 12:47 Plan: continue detox. D/C in AM.
[2019-04-11] MEDS: MELATONIN 5 MG TABLETS PO PRN (22:13)
[2019-04-11] MEDS: THIAMINE HCL 100 MG TABLET (FP) PO SCH (22:13)
[2019-04-12] MEDS ORDERED: METHADONE HCL 5 MG TABLET (FOR DETOX USE ONLY) PO ONE (06:00)
[2019-04-12 08:21] VITALS: BP 137/60; PULSE 46; TEMP 97.7
--- NOTE | 2019-04-12 13:20 | DS ---
[facility] Detox Discharge Summary Admission Date: 04/07/19 - History Present History: Alcohol Dependence, Opioid Dependence - Physical Exam Results Vital Signs: Vital Signs Temperature 97.7 F 04/12/19 08:20 Pulse Rate 46 L 04/12/19 08:20 Respiratory Rate 18 04/12/19 08:20 Blood Pressure 137/60 04/12/19 08:20 O2 Sat by Pulse Oximetry (%) Pertinent Admission Physical Exam Findings: ROS negative PE alert and oriented x 3 skin warm and dry +perrla, eoms intact bl ext full rom, amb ad abelardo - Treatment Hospital Course: Detox Protocol Followed, Detoxed Safely, Responded well, Discharged Condition Good Patient has Accepted a Rehab Referral to: Patient encouraged to attend AA/NA and f/u with pcp within one week of d/c - Medication Discharge Medications: Ambulatory Orders Gabapentin [Neurontin] 600 mg PO TID 01/02/19 Albuterol Sulfate Inhaler - [Ventolin Hfa Inhaler -] 1 - 2 inh PO QID #1 inhaler 03/12/19 - AMA Did Patient Leave Against Medical Advice: No
== END 2019-04-12 08:50 | disposition home or self-care (01) | DRG 897 ==
LOC: YASAS 09:18 → Y6N 12:15
PROVIDERS: ADMIT Surgery; ATTEND Surgery
PROC: HZ2ZZZZ Detoxification Services for Substance Abuse Treatment (ICD-10-PCS; principal; 2019-04-07)
DX: F11.23 Opioid dependence with withdrawal (principal); F10.230 Alcohol dependence with withdrawal, uncomplicated; F17.210 Nicotine dependence, cigarettes, uncomplicated
CPT/HCPCS: J0735

== ENCOUNTER 2022-01-04 10:46 | Inpatient (IN) | payer OTHER ==
[2022-01-04 11:16] VITALS: BMI 33.5
[2022-01-04] MEDS ORDERED: cloNIDine HCL 0.1 MG TABLET PO PRN (12:05)
[2022-01-04] MEDS ORDERED: NALOXONE HCL 0.4 MG/ML VIAL IM PRN (12:05)
[2022-01-04] MEDS ORDERED: MAGNESIUM CITRATE 300 ML BOTTLE PO PRN (12:05)
[2022-01-04] MEDS ORDERED: BENZOCAINE/MENTHOL (CHLORASEPTIC ) LOZENGE MM PRN (12:05)
[2022-01-04] MEDS ORDERED: MAGNESIUM HYDROX 2400MG/30ML ORAL SUSPENSION 30 ML CUP PO PRN (12:05)
[2022-01-04] MEDS ORDERED: IBUPROFEN 600 MG TABLET (FP) PO PRN (12:05)
[2022-01-04] MEDS ORDERED: MAG HYDROX/AL HYDROX/SIMETH 30 ML UNIT-DOSE CUP PO PRN (12:05)
[2022-01-04] MEDS ORDERED: BISMUTH SUBSALICYLATE 524 MG/30 ML PO PRN (12:05)
[2022-01-04] MEDS ORDERED: ACETAMINOPHEN 325 MG TABLET (FP) PO PRN ×2 (12:05)
[2022-01-04] MEDS ORDERED: IBUPROFEN 400 MG TABLET (FP) PO PRN (12:05)
[2022-01-04] MEDS ORDERED: NICOTINE 10 MG CARTRIDGE (INHALER) IH PRN (12:05)
[2022-01-04] MEDS ORDERED: LOPERAMIDE HCL 2 MG CAPSULE PO PRN (12:05)
[2022-01-04] MEDS ORDERED: methaDONE HCL 10 MG TABLET (FOR DETOX USE ONLY) PO ONE (14:00)
[2022-01-04] MEDS: DICYCLOMINE HCL 10 MG CAPSULE PO PRN (15:03)
[2022-01-04] MEDS: LORazepam 1 MG TABLET PO PRN ×2 (15:03→19:17)
[2022-01-04] MEDS: LORazepam 2 MG TABLET PO SCH ×2 (17:13→22:27)
[2022-01-04] MEDS: THIAMINE HCL 100 MG TABLET (FP) PO SCH (22:28)
[2022-01-04] MEDS: METHOCARBAMOL 500 MG TABLET PO PRN (22:28)
[2022-01-04] MEDS: MELATONIN 5 MG TABLETS PO SCH (22:31)
[2022-01-04] MEDS: LACTULOSE 20 GM/30 ML UDC (FOR ORAL USE ONLY) PO SCH (22:31)
[2022-01-05] MEDS: LACTULOSE 20 GM/30 ML UDC (FOR ORAL USE ONLY) PO SCH ×3 (06:18→22:47)
[2022-01-05] MEDS: LORazepam 2 MG TABLET PO SCH ×4 (06:18→22:48)
[2022-01-05] MEDS ORDERED: methaDONE HCL 10 MG TABLET (FOR DETOX USE ONLY) ONE (09:53)
[2022-01-05 11:41] LABS: HEMATOCRIT 34.5 % (35.4-49); HEMOGLOBIN 11.6 GM/dL (11.7-16.9); MCH 27.2 pg (25.7-33.7); MCHC 33.7 g/dl (32.0-35.9); MEAN CELL VOLUME 80.8 fl (80-96); MEAN PLT VOLUME 8.9 fl (7.5-11.1); PLATELET COUNT 93 10^3/uL (134-434); RBC 4.27 M/mm3 (4.00-5.60); RDW 17.1 % (11.9-15.9); WHITE BLOOD COUNT 2.9 K/mm3 (4.0-10.0)
[2022-01-05 12:04] LABS: CALCIUM 8.6 mg/dL (8.5-10.1)
[2022-01-05 12:05] LABS: ALBUMIN 3.5 g/dl (3.4-5.0); BLOOD UREA NITROGEN 5.3 mg/dL (7-18)
[2022-01-05 12:06] LABS: TOT PROT 6.8 g/dl (6.4-8.2)
[2022-01-05 12:09] LABS: CREATININE 0.7 mg/dL (0.55-1.3)
[2022-01-05 12:11] LABS: BILIRUBIN,TOTAL 0.9 mg/dL (0.2-1)
[2022-01-05] MEDS: PRENATAL VITAMINS W/ FOLIC ACID TABLET (FP) PO SCH (12:29)
[2022-01-05] MEDS: NICOTINE 7 MG/24 HOURS TOPICAL PATCH TD SCH (12:29)
[2022-01-05] MEDS: METHOCARBAMOL 500 MG TABLET PO PRN (12:29)
[2022-01-05] MEDS: THIAMINE HCL 100 MG TABLET (FP) PO SCH (22:49)
[2022-01-05] MEDS: MELATONIN 5 MG TABLETS PO SCH (22:49)
[2022-01-06] MEDS: LACTULOSE 20 GM/30 ML UDC (FOR ORAL USE ONLY) PO SCH ×3 (05:50→23:08)
[2022-01-06] MEDS: LORazepam 1 MG TABLET PO SCH ×4 (05:50→23:07)
[2022-01-06] MEDS ORDERED: methaDONE HCL 10 MG TABLET (FOR DETOX USE ONLY) PO ONE (10:00)
[2022-01-06] MEDS: NICOTINE 7 MG/24 HOURS TOPICAL PATCH TD SCH (15:00)
[2022-01-06] MEDS: PRENATAL VITAMINS W/ FOLIC ACID TABLET (FP) PO SCH (15:00)
[2022-01-06] MEDS: MELATONIN 5 MG TABLETS PO SCH (23:07)
[2022-01-06] MEDS: THIAMINE HCL 100 MG TABLET (FP) PO SCH (23:07)
[2022-01-07] MEDS ORDERED: LORazepam 0.5 MG TABLET PO PRN
[2022-01-07] MEDS: LACTULOSE 20 GM/30 ML UDC (FOR ORAL USE ONLY) PO SCH ×2 (06:11→14:10)
[2022-01-07] MEDS: LORazepam 0.5 MG TABLET PO SCH ×2 (06:11→10:46)
[2022-01-07] MEDS ORDERED: methaDONE HCL 10 MG TABLET (FOR DETOX USE ONLY) ONE (09:46)
[2022-01-07] MEDS: PRENATAL VITAMINS W/ FOLIC ACID TABLET (FP) PO SCH (10:46)
[2022-01-07] MEDS: METHOCARBAMOL 500 MG TABLET PO PRN (10:46)
[2022-01-07] MEDS: DICYCLOMINE HCL 10 MG CAPSULE PO PRN (10:48)
[2022-01-07] MEDS: NICOTINE 7 MG/24 HOURS TOPICAL PATCH TD SCH (11:26)
[2022-01-07 17:11] VITALS: BP 115/67; PULSE 80; TEMP 96.9
[2022-01-08] MEDS ORDERED: LORazepam 0.5 MG TABLET PO ONE (05:00)
[2022-01-08] MEDS ORDERED: methaDONE HCL 10 MG TABLET (FOR DETOX USE ONLY) PO ONE (10:00)
== END 2022-01-07 19:35 | disposition left against medical advice (07) | DRG 894 ==
LOC: YASAS 10:46 → Y6N 14:24
PROVIDERS: ADMIT Allergy & Immunology; ATTEND Surgery
PROC: HZ2ZZZZ Detoxification Services for Substance Abuse Treatment (ICD-10-PCS; principal; 2022-01-04)
DX: F11.23 Opioid dependence with withdrawal (principal); F10.230 Alcohol dependence with withdrawal, uncomplicated; F39 Unspecified mood [affective] disorder; F19.24 Other psychoactive substance dependence with psychoactive substance-induced mood disorder; F17.213 Nicotine dependence, cigarettes, with withdrawal; F10.288 Alcohol dependence with other alcohol-induced disorder; D72.810 Lymphocytopenia; D69.6 Thrombocytopenia, unspecified; G62.9 Polyneuropathy, unspecified; K74.60 Unspecified cirrhosis of liver; K59.00 Constipation, unspecified; M54.42 Lumbago with sciatica, left side; M54.41 Lumbago with sciatica, right side; G89.29 Other chronic pain; Z85.819 Personal history of malignant neoplasm of unspecified site of lip, oral cavity, and pharynx
CPT/HCPCS: 36415; 80053; 85027; 86780; 93005; 93010; C9803-CS; J0735; U0003; U0005

== ENCOUNTER 2022-02-02 18:07 | Inpatient (IN) | payer OTHER ==
[2022-02-02 20:13] VITALS: BMI 33.5
[2022-02-02] MEDS ORDERED: NALOXONE HCL 0.4 MG/ML VIAL IM PRN (21:19)
[2022-02-02] MEDS ORDERED: methaDONE HCL 10 MG TABLET (FOR DETOX USE ONLY) PO ONE (21:19)
[2022-02-02] MEDS ORDERED: BENZOCAINE/MENTHOL (CHLORASEPTIC ) LOZENGE MM PRN (21:19)
[2022-02-02] MEDS ORDERED: IBUPROFEN 600 MG TABLET (FP) PO PRN (21:19)
[2022-02-02] MEDS ORDERED: NALOXONE HCL (KLOXXADO) 8 MG SPRAY NS PRN (21:19)
[2022-02-02] MEDS ORDERED: NICOTINE POLACRILEX 2 MG GUM BUC PRN (21:19)
[2022-02-02] MEDS ORDERED: BISMUTH SUBSALICYLATE 524 MG/30 ML PO PRN (21:19)
[2022-02-02] MEDS ORDERED: DICYCLOMINE HCL 10 MG CAPSULE PO PRN (21:19)
[2022-02-02] MEDS ORDERED: IBUPROFEN 400 MG TABLET (FP) PO PRN (21:19)
[2022-02-02] MEDS ORDERED: MAG HYDROX/AL HYDROX/SIMETH 30 ML UNIT-DOSE CUP PO PRN (21:19)
[2022-02-02] MEDS ORDERED: MAGNESIUM HYDROX 2400MG/30ML ORAL SUSPENSION 30 ML CUP PO PRN (21:19)
[2022-02-02] MEDS ORDERED: guaiFENesin 200 MG/10 ML 10 ML UNIT-DOSE CUPS PO PRN (21:19)
[2022-02-02] MEDS ORDERED: P-EPHED 60MG/TRIPROLIDI 2.5MG TABLET PO PRN (21:19)
[2022-02-02] MEDS ORDERED: PROCHLORPERAZINE MALEATE 5 MG TABLET PO PRN (21:19)
[2022-02-02] MEDS ORDERED: MAGNESIUM CITRATE 300 ML BOTTLE PO PRN (21:19)
[2022-02-02] MEDS ORDERED: LOPERAMIDE HCL 2 MG CAPSULE PO PRN (21:19)
[2022-02-02] MEDS ORDERED: ACETAMINOPHEN 325 MG TABLET (FP) PO PRN ×2 (21:19)
[2022-02-02] MEDS ORDERED: cloNIDine HCL 0.1 MG TABLET PO PRN (21:19)
[2022-02-02] MEDS: THIAMINE HCL 100 MG TABLET (FP) PO SCH (22:52)
[2022-02-02] MEDS: MELATONIN 5 MG TABLETS PO SCH (22:52)
[2022-02-02] MEDS ORDERED: diazePAM 5 MG TABLET ONE (22:52)
[2022-02-02] MEDS: diazePAM 5 MG TABLET PO SCH (22:52)
[2022-02-02] MEDS ORDERED: methaDONE HCL 10 MG TABLET (FOR DETOX USE ONLY) ONE (22:52)
[2022-02-03] MEDS ORDERED: diazePAM 5 MG TABLET ONE ×2 (06:35→10:29)
[2022-02-03] MEDS: diazePAM 5 MG TABLET PO SCH ×4 (06:36→22:04)
[2022-02-03] MEDS ORDERED: methaDONE HCL 10 MG TABLET (FOR DETOX USE ONLY) ONE (09:46)
[2022-02-03 10:34] LABS: HEMATOCRIT 36.3 % (35.4-49); HEMOGLOBIN 12.3 GM/dL (11.7-16.9); MCH 26.9 pg (25.7-33.7); MCHC 33.8 g/dl (32.0-35.9); MEAN CELL VOLUME 79.5 fl (80-96); MEAN PLT VOLUME 8.7 fl (7.5-11.1); PLATELET COUNT 146 10^3/uL (134-434); RBC 4.56 M/mm3 (4.00-5.60); RDW 17.3 % (11.9-15.9); WHITE BLOOD COUNT 4.5 K/mm3 (4.0-10.0)
[2022-02-03 10:48] LABS: CALCIUM 8.6 mg/dL (8.5-10.1)
[2022-02-03 10:49] LABS: ALBUMIN 3.2 g/dl (3.4-5.0); BLOOD UREA NITROGEN 13.8 mg/dL (7-18)
[2022-02-03 10:52] LABS: CREATININE 0.9 mg/dL (0.55-1.3)
[2022-02-03 10:54] LABS: BILIRUBIN,TOTAL 0.9 mg/dL (0.2-1); TOT PROT 6.2 g/dl (6.4-8.2)
[2022-02-03] MEDS: PRENATAL VITAMINS W/ FOLIC ACID TABLET (FP) PO SCH (11:26)
[2022-02-03] MEDS: NICOTINE 14 MG/24 HOURS TOPICAL PATCH TD SCH (11:29)
[2022-02-03] MEDS: METHOCARBAMOL 500 MG TABLET PO PRN (18:00)
[2022-02-03] MEDS: THIAMINE HCL 100 MG TABLET (FP) PO SCH (22:04)
[2022-02-03] MEDS: MELATONIN 5 MG TABLETS PO SCH (22:04)
[2022-02-04] MEDS: METHOCARBAMOL 500 MG TABLET PO PRN ×2 (01:22→22:13)
[2022-02-04] MEDS: diazePAM 5 MG TABLET PO SCH ×3 (05:27→22:11)
[2022-02-04] MEDS ORDERED: methaDONE HCL 10 MG TABLET (FOR DETOX USE ONLY) PO ONE (10:00)
[2022-02-04] MEDS: NICOTINE 14 MG/24 HOURS TOPICAL PATCH TD SCH (10:21)
[2022-02-04] MEDS: PRENATAL VITAMINS W/ FOLIC ACID TABLET (FP) PO SCH (10:21)
[2022-02-04] MEDS: diazePAM 5 MG TABLET PO PRN ×2 (10:23→15:29)
[2022-02-04] MEDS: MELATONIN 5 MG TABLETS PO SCH (22:12)
[2022-02-04] MEDS: THIAMINE HCL 100 MG TABLET (FP) PO SCH (22:12)
[2022-02-05] MEDS: diazePAM 5 MG TABLET PO SCH ×2 (05:40→17:54)
[2022-02-05] MEDS ORDERED: methaDONE HCL 10 MG TABLET (FOR DETOX USE ONLY) ONE (08:50)
[2022-02-05] MEDS: PRENATAL VITAMINS W/ FOLIC ACID TABLET (FP) PO SCH (10:39)
[2022-02-05] MEDS: diazePAM 5 MG TABLET PO PRN (10:41)
[2022-02-05] MEDS: NICOTINE 14 MG/24 HOURS TOPICAL PATCH TD SCH (10:42)
[2022-02-05] MEDS: MELATONIN 5 MG TABLETS PO SCH (22:22)
[2022-02-05] MEDS: THIAMINE HCL 100 MG TABLET (FP) PO SCH (22:23)
[2022-02-06] MEDS ORDERED: diazePAM 5 MG TABLET PO ONE (06:00)
[2022-02-06] MEDS ORDERED: methaDONE HCL 10 MG TABLET (FOR DETOX USE ONLY) PO ONE (10:00)
[2022-02-06] MEDS: PRENATAL VITAMINS W/ FOLIC ACID TABLET (FP) PO SCH (10:13)
[2022-02-06] MEDS: NICOTINE 14 MG/24 HOURS TOPICAL PATCH TD SCH (10:13)
[2022-02-06] MEDS: THIAMINE HCL 100 MG TABLET (FP) PO SCH (23:23)
[2022-02-06] MEDS: MELATONIN 5 MG TABLETS PO SCH (23:23)
[2022-02-07 09:05] VITALS: BP 140/79; PULSE 75; TEMP 97.3
== END 2022-02-07 09:00 | disposition home or self-care (01) | DRG 897 ==
LOC: YASAS 18:07 → Y3N 02-03 11:05
PROVIDERS: ADMIT Allergy & Immunology; ATTEND Surgery
PROC: HZ2ZZZZ Detoxification Services for Substance Abuse Treatment (ICD-10-PCS; principal; 2022-02-03)
DX: F11.23 Opioid dependence with withdrawal (principal); F13.20 Sedative, hypnotic or anxiolytic dependence, uncomplicated; F10.230 Alcohol dependence with withdrawal, uncomplicated; F17.210 Nicotine dependence, cigarettes, uncomplicated; F31.9 Bipolar disorder, unspecified; F19.24 Other psychoactive substance dependence with psychoactive substance-induced mood disorder; K74.60 Unspecified cirrhosis of liver; Z96.651 Presence of right artificial knee joint; Z85.819 Personal history of malignant neoplasm of unspecified site of lip, oral cavity, and pharynx; Z91.51 Personal history of suicidal behavior
CPT/HCPCS: 36415; 80053; 85027; 86780; C9803-CS; U0003; U0005